=== PATIENT | male | born 1945 | race Caucasian/White ===

== ENCOUNTER 2018-04-17 20:46 | Inpatient (IN) | payer OTHER, MEDICARE ==
[~2018-04-17] VITALS: Ht 170.2 cm; Wt 64.6 kg
[~2018-04-17 20:46] MED LIST: ASPI81CH PO; ASPI81EC; ATEN25 PO; B-Complex With1 EACH PO; BUPROBAN PO; BUSP15 PO; CYAN100 PO; CYCL10 PO; ERGO400 PO; FOLI1 PO; GABA300 PO; HYDACE5 PO; IBUP600 PO; LISI5 PO; LORA.5 PO; METO50 PO; METPRE4DP PO; NICO2 PO; SIMV5 PO; THIA100 PO
[2018-04-17 21:32] LABS: BASOPHILS ABSOLUTE AUTO 0.09 K/mm3 (0.00-0.23); BASOPHILS PERCENT AUTO 1 % (0-2); EOSINOPHILS ABSOLUTE AUTO 0.08 K/mm3 (0.00-0.68); EOSINOPHILS PERCENT AUTO 1 % (0-6); Hematocrit 39.2 % (37.0-53.0); Hemoglobin 13.1 g/dL (13.5-17.5); IMMATURE GRAN PERCENT AUTO 1 % (0-1); LYMPHOCYTES ABSOLUTE AUTO 0.92 K/mm3 (0.84-5.20); LYMPHOCYTES PERCENT AUTO 5 % (21-46); MONOCYTES ABSOLUTE AUTO 2.17 K/mm3 (0.16-1.47); MONOCYTES PERCENT AUTO 12 % (4-13); Mean Corpuscular HGB 34.8 pg (26.0-34.0); Mean Corpuscular HGB Conc 33.4 g/dL (31.5-36.5); Mean Corpuscular Volume 104 fL (80-100); NEUTROPHILS ABSOLUTE AUTO 14.26 K/mm3 (1.96-9.15); NEUTROPHILS PERCENT AUTO 81 % (41-73); Platelet Count 296 K/mm3 (150-400); RDW Coefficient Variation 13.3 % (11.7-14.2); RDW Standard Deviation 51.2 fL (35.1-46.3); Red Blood Cell Count 3.76 M/mm3 (4.30-5.90); White Blood Cell Count 17.62 K/mm3 (4.00-11.30)
[2018-04-17 21:43] LABS: Alanine Aminotransfer (ALT/SGP 24 U/L (12-78); Albumin/Globulin Ratio 0.8 (0.8-1.8); Alk Phos 94 U/L (50-136); Anion Gap 5 mmol/L (6-16); Aspartate Aminotrans (AST/SGOT 24 U/L (12-37); Bilirubin, Total 0.8 mg/dL (0.1-1.0); Blood Urea Nitrogen 22 mg/dL (8-24); CO2, Blood 32 mmol/L (21-32); Calcium, Blood 8.5 mg/dL (8.5-10.1); Chloride, Blood 98 mmol/L (98-108); Creatinine, Blood 0.73 mg/dL (0.60-1.20); Globulin, Blood 3.7 g/dL (2.2-4.0); Glomerular Filtration Rate >60 (60-); Glucose, Blood 154 mg/dL (70-99); Potassium, Blood 3.9 mmol/L (3.5-5.5); Sodium, Blood 135 mmol/L (136-145); Total Protein, Blood 6.7 g/dL (6.4-8.2)
--- NOTE | 2018-04-18 03:48 | NUR ---
PT ADMITTED FROM ED FOR WEAKNESS WITH HX OF MULTIPLE FALLS. UPON ASSESSMENT, PT NOTED TO HAVE BLE EDEMA AND POOR CIRCULATION. 02 SATS RANGING FROM 90-92 ON 3 L PER NASAL CANNULA. WHEEZING NOTED UPON AUSCULATION. BREATHING TX X2. PT DENIES CHEST PAIN OR SOB. BED ALARM IN PLACE FOR SAFETY. CALL LIGHT IN REACH.
[2018-04-18 05:39] LABS: Hematocrit 41.1 % (37.0-53.0); Hemoglobin 14.2 g/dL (13.5-17.5); Mean Corpuscular HGB 35.9 pg (26.0-34.0); Mean Corpuscular HGB Conc 34.5 g/dL (31.5-36.5); Mean Corpuscular Volume 104 fL (80-100); Mean Platelet Volume 9.9 fL (9.1-12.4); Platelet Count 302 K/mm3 (150-400); RDW Coefficient Variation 13.2 % (11.7-14.2); RDW Standard Deviation 51.3 fL (35.1-46.3); Red Blood Cell Count 3.96 M/mm3 (4.30-5.90); White Blood Cell Count 18.14 K/mm3 (4.00-11.30)
[2018-04-18 06:15] LABS: Alanine Aminotransfer (ALT/SGP 26 U/L (12-78); Albumin, Blood 2.8 g/dL (3.4-5.0); Albumin/Globulin Ratio 0.7 (0.8-1.8); Alk Phos 97 U/L (50-136); Anion Gap 6 mmol/L (6-16); Aspartate Aminotrans (AST/SGOT 23 U/L (12-37); Bilirubin, Total 0.9 mg/dL (0.1-1.0); Blood Urea Nitrogen 24 mg/dL (8-24); Bun/Creatinine Ratio 39.1 (12.0-20.0); CO2, Blood 30 mmol/L (21-32); Calcium, Blood 8.7 mg/dL (8.5-10.1); Chloride, Blood 97 mmol/L (98-108); Creatinine, Blood 0.61 mg/dL (0.60-1.20); Glomerular Filtration Rate >60 (60-); Glucose, Blood 160 mg/dL (70-99); Potassium, Blood 4.1 mmol/L (3.5-5.5); Sodium, Blood 133 mmol/L (136-145); Total Protein, Blood 6.8 g/dL (6.4-8.2)
[2018-04-18 09:13] LABS: Adenovirus Not Detected (NOT DETECT); Bordetella pertussis Not Detected (NOT DETECT); Chlamydophila pneumoniae Not Detected (NOT DETECT); Coronavirus 229E Not Detected (NOT DETECT); Coronavirus HKU1 Not Detected (NOT DETECT); Coronavirus NL63 Not Detected (NOT DETECT); Coronavirus OC43 Not Detected (NOT DETECT); Human Metapneumovirus Not Detected (NOT DETECT); Human Rhinovirus/Enterovirus Not Detected (NOT DETECT); Influenza A/2009-H1 Not Detected (NOT DETECT); Influenza A/H1 Not Detected (NOT DETECT); Influenza A/H3 Not Detected (NOT DETECT); Influenza B Not Detected (NOT DETECT); Mycoplasma pneumoniae Not Detected (NOT DETECT); Parainfluenza Virus 1 Not Detected (NOT DETECT); Parainfluenza Virus 2 Not Detected (NOT DETECT); Parainfluenza Virus 3 Not Detected (NOT DETECT); Parainfluenza Virus 4 Not Detected (NOT DETECT); Respiratory Syncytial Virus Not Detected (NOT DETECT)
[2018-04-18 10:38] LABS: Influenza A Not Detected (NOT DETECT)
[2018-04-18 12:59] LABS: Source, Urine Clean Catch
[2018-04-18 13:09] LABS: Appearance, Urine Clear (Clear); Bilirubin, Urine Neg (Neg); Blood, Urine Neg (Neg); Color, Urine Yellow (P-Yellow); Glucose Qualitative, Urine Neg (Neg); Ketones, Urine Neg (Neg); Leukocyte Esterase, Urine Neg (Neg); Nitrite, Urine Neg (Neg); Protein, Urine 3+ (Neg); Specific Gravity, Urine 1.025 (1.003-1.022); Urobilinogen, Urine 2+ (Normal)
[2018-04-18 13:27] LABS: Red Blood Cells, Urine 0-2 /hpf (0-2); White Blood Cells, Urine 0-2 /hpf (0-5)
[2018-04-18 13:28] LABS: Bacteria Not Seen /hpf; Mucus Mod (0-Heavy); Squamous Epithelial Cells Rare /hpf (Few)
--- NOTE | 2018-04-18 16:24 | NUR ---
SHIFT SUMMARY PT HAS HAD NO ACUTE CHANGES THIS SHIFT, MEDICATED 1X FOR BACK PAIN, NO OTHER COMPLAINTS OF ANY KIND. PT HAS SLEPT T/O MOST OF SHIFT, WAKES EASLIY FOR PT CARE AND MEDS. PT APPEARS TO BE SLEEPING AT THIS TIME, WILL CONT TO MONITOR UNTIL REPORT GIVEN TO MADI RN.
[2018-04-18 19:01] LABS: PCO2 Arterial 50.4 mmHg (35-45); PO2 Arterial 58.2 mmHg (80-100); pH Blood Arterial 7.41 (7.35-7.45)
--- NOTE | 2018-04-19 03:59 | NUR ---
SHIFT SUMMARY: PT HAS DONE WELL THIS SHIFT. NO ACUTE CHANGES. ONE SBA TO BATHROOM WITH WALKER. PT REPORTS SOME DIZZINESS WHEN WALKING. BED ALARM ON FOR SAFETY. EATING AND DRINKING. ABX INFUSING. SATS MAINTAINED >90% ON 3 L PER NC. WILL BEGIN TO WEAN PATIENT OFF O2 TOLERATED. ENCOURAGE USE OF INCENTIVE SPIROMETER. NO CONCERNS AT THIS TIME. CALL LIGHT IN REACH.
[2018-04-19 08:40] LABS: BASOPHILS ABSOLUTE AUTO 0.01 K/mm3 (0.00-0.23); BASOPHILS PERCENT AUTO 0 % (0-2); EOSINOPHILS PERCENT AUTO 0 % (0-6); Hematocrit 41.6 % (37.0-53.0); Hemoglobin 13.9 g/dL (13.5-17.5); IMMATURE GRAN ABSOLUTE AUTO 0.16 K/mm3 (0.00-0.10); IMMATURE GRAN PERCENT AUTO 1 % (0-1); LYMPHOCYTES ABSOLUTE AUTO 0.56 K/mm3 (0.84-5.20); LYMPHOCYTES PERCENT AUTO 3 % (21-46); MONOCYTES ABSOLUTE AUTO 1.01 K/mm3 (0.16-1.47); MONOCYTES PERCENT AUTO 5 % (4-13); Mean Corpuscular HGB Conc 33.4 g/dL (31.5-36.5); Mean Corpuscular Volume 105 fL (80-100); Mean Platelet Volume 10.3 fL (9.1-12.4); NEUTROPHILS ABSOLUTE AUTO 20.43 K/mm3 (1.96-9.15); NEUTROPHILS PERCENT AUTO 92 % (41-73); Platelet Count 310 K/mm3 (150-400); RDW Coefficient Variation 13.2 % (11.7-14.2); RDW Standard Deviation 51.3 fL (35.1-46.3); Red Blood Cell Count 3.97 M/mm3 (4.30-5.90); White Blood Cell Count 22.17 K/mm3 (4.00-11.30)
[2018-04-19 08:49] LABS: Anion Gap 5 mmol/L (6-16); Blood Urea Nitrogen 29 mg/dL (8-24); Bun/Creatinine Ratio 46.8 (12.0-20.0); CO2, Blood 30 mmol/L (21-32); Chloride, Blood 102 mmol/L (98-108); Creatinine, Blood 0.62 mg/dL (0.60-1.20); Glomerular Filtration Rate >60 (60-); Glucose, Blood 194 mg/dL (70-99); Potassium, Blood 4.2 mmol/L (3.5-5.5); Sodium, Blood 137 mmol/L (136-145)
--- NOTE | 2018-04-19 16:03 | NUR ---
SHIFT SUMMARY PT A&OX4, VSS, 3.5L NC, UNABLE TO TITRATE DOWN TODAY; ENC TCDB AND I.S. USE, PT DEMONSTRATED T/O SHIFT. BLOOD PRESSURE BEST ON LUE, TENDS TO RUN HIGHER ON RUE. USES URINAL, VOIDING WELL. ABX INFUSING ORDERED. AMB SBA TO BRP, BM TODAY. WILL CTM & TX PER EMAR UNTIL REPORT GIVEN TO ONCOMING NOC RN.
--- NOTE | 2018-04-20 03:59 | NUR ---
SHIFT SUMMARY: PT REPORTS HAVING A ROUGH DAY. AGITATED AND ANXIOUS T/O SHIFT WHILE AWAKE. REPORTS BEING FRUSTURATED BECAUSE HE IS HAVING A HARD TIME FALLING ASLEEP AND IS NOT GETTING BETTER. BLE EDEMA HAS IMPROVED. DENIES SOB AND ANY PAIN. ON 3.5 L PER NC. PLAN IS FOR PT TO DISCHARGE TODAY. AT APPROX 2215 FILING CLERK REPORTS WITNESSING PT CUSSING AND YELLING ON CELL PHONE. PT THREW CELL PHONE ACROSS HALLWAY. SECURITY CALLED. DR NOTIFIED OF INCIDENT. ATIVAN X1 DOSE ORDERED. PT GIVEN ATIVAN, OFFERED EAR PLUGS AND WARM BLANKETS.
[2018-04-20 06:50] LABS: BASOPHILS ABSOLUTE AUTO 0.02 K/mm3 (0.00-0.23); BASOPHILS PERCENT AUTO 0 % (0-2); EOSINOPHILS PERCENT AUTO 0 % (0-6); Hematocrit 38.4 % (37.0-53.0); Hemoglobin 12.8 g/dL (13.5-17.5); IMMATURE GRAN ABSOLUTE AUTO 0.18 K/mm3 (0.00-0.10); IMMATURE GRAN PERCENT AUTO 1 % (0-1); LYMPHOCYTES ABSOLUTE AUTO 0.81 K/mm3 (0.84-5.20); LYMPHOCYTES PERCENT AUTO 5 % (21-46); MONOCYTES ABSOLUTE AUTO 1.49 K/mm3 (0.16-1.47); MONOCYTES PERCENT AUTO 9 % (4-13); Mean Corpuscular HGB 34.7 pg (26.0-34.0); Mean Corpuscular HGB Conc 33.3 g/dL (31.5-36.5); Mean Corpuscular Volume 104 fL (80-100); Mean Platelet Volume 10.2 fL (9.1-12.4); NEUTROPHILS ABSOLUTE AUTO 14.63 K/mm3 (1.96-9.15); NEUTROPHILS PERCENT AUTO 85 % (41-73); Platelet Count 311 K/mm3 (150-400); RDW Coefficient Variation 13.4 % (11.7-14.2); RDW Standard Deviation 51.5 fL (35.1-46.3); Red Blood Cell Count 3.69 M/mm3 (4.30-5.90); White Blood Cell Count 17.13 K/mm3 (4.00-11.30)
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
--- NOTE | 2018-04-21 07:30 | NUR ---
SUMMARY PT SLEPT TONIGHT. NO DISTRESS.
[2018-04-21] MEDS ORDERED: DULERA 200 MCG/13 GM INH (17:27)
[2018-04-21] MEDS ORDERED: NICO21TP TOP (17:28)
[2018-04-21] MEDS ORDERED: PRED20 PO (17:29)
[2018-04-21] MEDS ORDERED: LEVO750 PO (17:30)
[2018-04-21] MEDS ORDERED: IBUP400 PO (17:34)
--- NOTE | 2018-04-21 18:23 | NUR ---
PT DISCHARGED TO [facility]. PICKED UP BY FRIEND. PT VERBALIZED UNDERSTANDING OF DISCHARGE MEDICATIONS. ALL BELONGINGS SENT WITH PT.
== END 2018-04-21 17:59 | disposition home or self-care (01) | DRG 190 ==
LOC: ER 20:46 → SURS 23:01 → ER 23:17 → SURS 23:17 → ER 23:20 → SURS 23:27
PROVIDERS: Emergency Medicine; Internal Medicine; ADMIT Internal Medicine
DX: J44.1 Chronic obstructive pulmonary disease with (acute) exacerbation (principal); J96.01 Acute respiratory failure with hypoxia; J18.0 Bronchopneumonia, unspecified organism; J98.11 Atelectasis; E87.1 Hypo-osmolality and hyponatremia; G60.0 Hereditary motor and sensory neuropathy; F43.10 Post-traumatic stress disorder, unspecified; I25.10 Atherosclerotic heart disease of native coronary artery without angina pectoris; I10 Essential (primary) hypertension; F32.9 Major depressive disorder, single episode, unspecified; F17.210 Nicotine dependence, cigarettes, uncomplicated
CPT/HCPCS: 36415; 36600; 71046; 71260; 80048; 80053; 81001; 82803; 83735; 83880; 84484; 85025; 85027; 85379; 87070; 87205; 87486; 87581; 87633; 87798; 92610; 93005; 93010; 94640; 94667; 94760; 94761; 96374; 97110; 97116; 97162; 97165; 97530; 99285-25; G8996; G8997; G8998; J0360; J1650; J1956; J2930; J7030; J7050; Q9967

== ENCOUNTER 2018-08-22 11:39 | Inpatient (IN) | payer MEDICARE ==
[~2018-08-22] VITALS: Ht 167.6 cm; Wt 73.3 kg
[~2018-08-22 11:39] MED LIST changes: +DULERA 200 MCG/13 GM INH; +IBUP400 PO; +LEVO750 PO; +NICO21TP TOP; +PRED20 PO
[2018-08-22 12:00] LABS: Hematocrit 40.7 % (37.0-53.0); Hemoglobin 13.2 g/dL (13.5-17.5); Mean Corpuscular HGB 35.9 pg (26.0-34.0); Mean Corpuscular HGB Conc 32.4 g/dL (31.5-36.5); Mean Corpuscular Volume 111 fL (80-100); Mean Platelet Volume 10.3 fL (9.1-12.4); Platelet Count 188 K/mm3 (150-400); RDW Standard Deviation 62.1 fL (35.1-46.3); Red Blood Cell Count 3.68 M/mm3 (4.30-5.90); White Blood Cell Count 16.82 K/mm3 (4.00-11.30)
[2018-08-22 12:28] LABS: Anion Gap 8 mmol/L (6-16); Blood Urea Nitrogen 41 mg/dL (8-24); Bun/Creatinine Ratio 45.2 (12.0-20.0); CHOL/HDL RATIO 1.4; CO2, Blood 29 mmol/L (21-32); Calcium, Blood 8.6 mg/dL (8.5-10.1); Chloride, Blood 98 mmol/L (98-108); Cholesterol 145 mg/dL (50-200); Creatinine, Blood 0.91 mg/dL (0.60-1.20); Glomerular Filtration Rate >60 (60-); Glucose, Blood 189 mg/dL (70-99); HDL Cholesterol 104 mg/dL (>39); International Normalized Ratio 1.01; LDL/HDL RATIO 0.2; Low Density Lipoprotein Chol 24 mg/dL (0-110); Magnesium, Blood 1.9 mg/dL (1.6-2.4); Potassium, Blood 4.4 mmol/L (3.5-5.5); Prothrombin Time Results 10.7 Sec (9.7-11.5); Sodium, Blood 135 mmol/L (136-145); Triglycerides 85 mg/dL (30-160); Very Low Density Lipoprot Chol 17 mg/dL (6-32)
[2018-08-22 12:49] LABS: CPK Creatine Kinase 1667 U/L (39-308); Creatine Kinase MB Index 14.8 (0.0-4.0)
[2018-08-22] MEDS ORDERED: ALBU3IS INH (13:51)
[2018-08-22] MEDS ORDERED: ATEN50 PO (13:56)
[2018-08-22] MEDS ORDERED: Vitamin D2000 UNIT PO (13:57)
[2018-08-22] MEDS ORDERED: DOXY100 PO (13:59)
[2018-08-22] MEDS ORDERED: HYDHCL25 PO (14:00)
[2018-08-22] MEDS ORDERED: SERT25 PO (14:01)
[2018-08-22] MEDS ORDERED: SILDENAFIL CIT100 MG PO (14:02)
[2018-08-22] MEDS ORDERED: TAMS.4ER PO (14:03)
[2018-08-22] MEDS ORDERED: VARE1 PO (14:05)
--- NOTE | 2018-08-22 14:46 | NUR ---
ADMIT PT ARRIVED TO ICU 15 AT [address] IN R FEMORAL. SITE IS C/D/I, SOFT, NO HEMATOMA. PT AT FIRST COMPLAINED OF NO PAIN, BUT THEN STARTED COMPLAINING OF NECK PAIN AND DEMANDING A LIDOCAINE PATCH. EXPLAINED TO HIM THAT THIS RN WILL CALL THE DOCTOR, BUT HE IS IN THE MIDDLE OF A PROCEDURE SO IT MIGHT TAKE AWHILE TO HEAR FROM HIM. PT STARTED YELLING AT THIS RN TO GET OUT OF HIS ROOM, BEING VERY UNCOOPERATIVE. DURING THIS PT IS LIFTING HIS HEAD OFF THE BED DESPITE SEVERAL REMINDERS AND ONGOING EDUCATION TO LAY FLAT. PT IS MORE COOEPRATIVE NOW THAT ORDER FOR LIDOCAINE PATCH WAS RECEIVED AND PATCH WAS APPLIED BUT HE IS STILL NONCOMPLIANT WITH LYING FLAT, LIFTING HIS HEAD OFTEN. DESPITE THIS, GROIN SITE REMAINS C/D/I, SOFT, NO HEMATOMA. PT'S BP WAS ALSO LOW WHEN HE GOT HERE WITH SBP IN THE 70S AND 80S. 1L NS BOLUSED PER DR. HOLDER AND MAINTENANCE IV FLUIDS STATED. SBP NOW IN THE 90S. CONTINUE TO MONITOR.
--- NOTE | 2018-08-22 17:43 | NUR ---
SHIFT SUMMARY: PT HAD ANGIO TODAY AND HAS A R FEMORAL GROIN SITE. SHEATH HAS REMAINED IN PLACE BUT NOW RECEIVED ORDER FROM DR. GUZMAN TO REMOVE IT BECAUSE IT IS UNKNOWN WHEN PT WILL GO TO [facility] FOR FURTHER TREATMENT. PT REMAINS ALERT AND ORIENTED. HE HAS BEEN MUCH MORE POLITE SINCE HE GOT HIS LIDOCAINE PATCH. STILL FORGETS NOT TO LIFT HIS HEAD AND ONCE GOT CAUGHT TRYING TO GET TO THE EDGE OF THE BED. BED ALARM ON NOW. LUGNS HAVE SOME EXP WHEEZES ON THE R SIDE. ON HIS HOME O2 OF 2L/NC. WHEN HE WAS SLEEPING SPO2 DROPED TO 86% SO O2 INCREASED TO 3L AND SPO2 CAME UP ABOVE 90%. SB, SBP IN THE 90S. GOOD PULSES IN BOTH FEET. GROIN SITE SOFT, NO HEMATOMA. CONTINUING TO MONITOR.
--- NOTE | 2018-08-22 18:57 | NUR ---
PT'S GROIN SHEATH REMOVED WITHOUT INCIDENT. PRESSURE HELD FOR 20 MINUTES, BUT SITE WAS STILL OOZING SO PRESSURE HELD FOR ANOTHER 10 MINUTES AND SITE HAS BEEN C/D/I, SOFT WITH NO HEMATOMA SINCE. WHILE HANGING PT'S MEDS HE HAD SUDDEN ONSET OF NAUSEA, THREW UP ABOUT 50ML OF DARK EMESIS. ZOFRAN GIVEN AND NAUSEA PASSED. GROIN SITE REMAINED STABLE. IMMEDIATELY AFTER PT WAS REQUESTING YOGURT TO EAT. INSTRUCTED PT ON STARTING WITH CL LIQUIDS FIRST. PT ALSO REQUESTING PAIN PILL. DR. HOLDER GAVE ONE TIME ORDER FOR OXYCODONE FOR PAIN DURING PT TRANSPORT IF PT'S BP IS STABLE.
[2018-08-22 19:18] LABS: Adenovirus Not Detected (NOT DETECT); Bordetella pertussis Not Detected (NOT DETECT); Chlamydophila pneumoniae Not Detected (NOT DETECT); Coronavirus 229E Not Detected (NOT DETECT); Coronavirus HKU1 Not Detected (NOT DETECT); Coronavirus NL63 Not Detected (NOT DETECT); Coronavirus OC43 Not Detected (NOT DETECT); Human Metapneumovirus Not Detected (NOT DETECT); Human Rhinovirus/Enterovirus Not Detected (NOT DETECT); Influenza A Not Detected (NOT DETECT); Influenza A/2009-H1 Not Detected (NOT DETECT); Influenza A/H1 Not Detected (NOT DETECT); Influenza A/H3 Not Detected (NOT DETECT); Influenza B Not Detected (NOT DETECT); Mycoplasma pneumoniae Not Detected (NOT DETECT); Parainfluenza Virus 1 Not Detected (NOT DETECT); Parainfluenza Virus 2 Not Detected (NOT DETECT); Parainfluenza Virus 3 Not Detected (NOT DETECT); Parainfluenza Virus 4 Not Detected (NOT DETECT); Respiratory Syncytial Virus Not Detected (NOT DETECT)
--- NOTE | 2018-08-22 19:30 | NUR ---
PT REQUESTING PAIN PILL FOR CHRONIC BACK AND NECK PAIN. OXYCODONE GIVEN. GETTING COBRA TRANSFER READY. R GROIN SITE IS STABLE. HAS GAUZE OVER SITE WITH CLEAR DRESSING SECURING IT. THERE IS A QUARTER SIZE BLOODY SPOT ON GAUZE THAT IS OUTLINED WITH SHARPIE AND IS WITHIN THE LINES. CONTINUOUSLY EDUCATING PT TO LAY FLAT AND KEEP LEG STRAIGHT.
--- NOTE | 2018-08-22 20:54 | NUR ---
2039 PT TAKEN BY AIR CREW AND AMB CREW TO AIRPORT FOR FIXED WING TRANSPORT TO [facility]. PT A/O X4. R GROIN SITE STABLE AND FLIGHT RN ASSESSED WELL. REPORT WAS CALLED TO HALLE TUCKER AT [facility].
== END 2018-08-22 20:40 | disposition short-term general hospital (02) | DRG 281 ==
LOC: ER 11:39 → ICUW 11:52
PROVIDERS: Emergency Medicine; Family Medicine; ADMIT Internal Medicine Interventional Cardiology
PROC: B2111ZZ Fluoroscopy of Multiple Coronary Arteries using Low Osmolar Contrast (ICD-10-PCS; principal; 2018-08-22)
DX: I21.3 ST elevation (STEMI) myocardial infarction of unspecified site (principal); J44.1 Chronic obstructive pulmonary disease with (acute) exacerbation; E87.1 Hypo-osmolality and hyponatremia; T82.855A Stenosis of coronary artery stent, initial encounter; I25.10 Atherosclerotic heart disease of native coronary artery without angina pectoris; E78.5 Hyperlipidemia, unspecified; Z87.891 Personal history of nicotine dependence; Z79.82 Long term (current) use of aspirin; G60.0 Hereditary motor and sensory neuropathy; G62.9 Polyneuropathy, unspecified; I10 Essential (primary) hypertension; E53.8 Deficiency of other specified B group vitamins; F41.8 Other specified anxiety disorders; I25.2 Old myocardial infarction; Z87.820 Personal history of traumatic brain injury; F10.10 Alcohol abuse, uncomplicated
CPT/HCPCS: 36415; 71045; 80048; 80061; 82550; 82553; 83735; 84100; 84145; 84484; 85027; 85610; 85730; 86850; 86900; 86901; 87486; 87581; 87633; 87798; 92941; 93005; 93010; 93454; 99152; 99153; C1725; C1769; C1887; C1894; J0456; J1644; J2250; J2405; J2930; J3010; J3411; J3475; J7030; J7042; J7050; Q9967

== ENCOUNTER 2018-08-27 23:23 | Inpatient (IN) | payer OTHER, MEDICARE ==
[~2018-08-27] VITALS: Ht 170.2 cm; Wt 76.1 kg
[~2018-08-27 23:23] MED LIST changes: +ALBU3IS INH; +ATEN50 PO; +DOXY100 PO; +HYDHCL25 PO; +SERT25 PO; +SILDENAFIL CIT100 MG PO; +TAMS.4ER PO; +VARE1 PO; +Vitamin D2000 UNIT PO
[2018-08-27 23:43] LABS: BASOPHILS ABSOLUTE AUTO 0.02 K/mm3 (0.00-0.23); BASOPHILS PERCENT AUTO 0 % (0-2); EOSINOPHILS ABSOLUTE AUTO 0.13 K/mm3 (0.00-0.68); EOSINOPHILS PERCENT AUTO 1 % (0-6); Hematocrit 41.5 % (37.0-53.0); IMMATURE GRAN ABSOLUTE AUTO 0.17 K/mm3 (0.00-0.10); IMMATURE GRAN PERCENT AUTO 1 % (0-1); LYMPHOCYTES ABSOLUTE AUTO 1.06 K/mm3 (0.84-5.20); LYMPHOCYTES PERCENT AUTO 7 % (21-46); MONOCYTES ABSOLUTE AUTO 2.36 K/mm3 (0.16-1.47); MONOCYTES PERCENT AUTO 14 % (4-13); Mean Corpuscular HGB 35.6 pg (26.0-34.0); Mean Corpuscular HGB Conc 33.7 g/dL (31.5-36.5); Mean Corpuscular Volume 106 fL (80-100); Mean Platelet Volume 9.6 fL (9.1-12.4); NEUTROPHILS PERCENT AUTO 77 % (41-73); Platelet Count 287 K/mm3 (150-400); RDW Coefficient Variation 14.6 % (11.7-14.2); RDW Standard Deviation 57.1 fL (35.1-46.3); Red Blood Cell Count 3.93 M/mm3 (4.30-5.90); White Blood Cell Count 16.34 K/mm3 (4.00-11.30)
[2018-08-27 23:56] LABS: International Normalized Ratio 1.07; Prothrombin Time Results 11.3 Sec (9.7-11.5)
[2018-08-28 00:01] LABS: Alanine Aminotransfer (ALT/SGP 73 U/L (12-78); Albumin, Blood 2.9 g/dL (3.4-5.0); Albumin/Globulin Ratio 0.9 (0.8-1.8); Alk Phos 83 U/L (50-136); Anion Gap 7 mmol/L (6-16); Aspartate Aminotrans (AST/SGOT 69 U/L (12-37); Bilirubin, Total 0.3 mg/dL (0.1-1.0); Blood Urea Nitrogen 29 mg/dL (8-24); Bun/Creatinine Ratio 46.7 (12.0-20.0); CO2, Blood 30 mmol/L (21-32); Calcium, Blood 8.2 mg/dL (8.5-10.1); Chloride, Blood 98 mmol/L (98-108); Creatinine, Blood 0.62 mg/dL (0.60-1.20); Globulin, Blood 3.2 g/dL (2.2-4.0); Glomerular Filtration Rate >60 (60-); Glucose, Blood 122 mg/dL (70-99); Potassium, Blood 4.3 mmol/L (3.5-5.5); Sodium, Blood 135 mmol/L (136-145); Total Protein, Blood 6.1 g/dL (6.4-8.2)
[2018-08-28 00:09] LABS: PCO2 Arterial 54.4 mmHg (35-45); pH Blood Arterial 7.39 (7.35-7.45)
[2018-08-28 00:10] LABS: PO2 Arterial 48 mmHg (80-100)
--- NOTE | 2018-08-28 06:24 | NUR ---
ASSUMED PT CARE/END OF SHIFT SUMMARY PT ARRIVED ON UNIT VIA STRETCHER SECONDARY TO COPD EXACERBATION. PT ON 10L VIA OXYMIZER WITH OXYGEN SATURATIONS 96%. PT APPEARS ALERT AND ORIENTED X4, BUT PT IS NOTED TO BE A POOR HISTORIAN AND FORGETFUL. LUNG SOUNDS DIMINISHED T/O WITH SOB NOTED UPON EXERTION. PT ABLE TO TRANSFER FROM STRETCHER TO BED WITH STANDBY ASSIST. HEPARIN GTT INFUSING AT 13UNITS/KG/HR. NS TKO WITH ABO. SKIN IS COOL TO THE TOUCH WITH POOR CAPILLARY REFILL. +2 PITTING EDEMA TO LEFT FOOT/ANKLE; NO EDEMA TO RIGHT LOWER EXTREMITY. PT DENIES ANY CHEST PAIN AT THIS TIME; HOWEVER, TROPONIN LEVEL OF 28. CARDIOLOGY HAS BEEN CONSULTED. PT HAS CALL LIGHT IN REACH AND IS ABLE TO MAKE NEEDS KNOWN. PLACED ON BIPAP D/T PT WANTING TO GO TO SLEEP; SETTINGS 12/6; FIO2 40%.
--- NOTE | 2018-08-28 07:17 | NUR ---
[facility] L[facility] CALL TO [facility] FOR UPDATED MEDICATION LIST. FAX NUMBER PROVIDED, AWAITING ARRIVAL OF LIST.
--- NOTE | 2018-08-28 07:39 | NUR ---
MEDICAL RECORD REQUEST MEDICAL RECORD REQUEST FAXED TO [facility]. CALL TO THEIR MEDICAL RECORDS DEPARTMENT SO THEY ARE AWARE OF THE INCOMING REQUEST. AWAITING RECORDS ARRIVAL.
[2018-08-28 08:04] LABS: Magnesium, Blood 1.8 mg/dL (1.6-2.4); Phosphorus, Blood 3.9 mg/dL (2.5-4.9)
[2018-08-28 08:13] LABS: CHOL/HDL RATIO 1.9; Cholesterol 143 mg/dL (50-200); HDL Cholesterol 76 mg/dL (>39); LDL/HDL RATIO 0.7; Low Density Lipoprotein Chol 54 mg/dL (0-110); Triglycerides 66 mg/dL (30-160); Very Low Density Lipoprot Chol 13 mg/dL (6-32)
--- NOTE | 2018-08-28 09:28 | NUR ---
0745 The pt was heard asking someone on the phone to "come and pick me up". I asked him if he wanted to leave the hospital, and he said that he "hates going AMA" but that he has "a fever". Then he clarified and stated that he has cabin fever, and just has to leave. His overall affect this morning was angry, irritable, and at times yelling at staff. market analystGARRETT Olivares was notified of the pt's stated intention of leaving AMA. 0840 The pt's friend arrived, and the pt became irate, yelling, "I've got to get out of here!" His reason for leaving AMA was that he has cabin fever, and just can't stand staying in the hospital due to "my severe PTSD". Dr. Swanson here in ICU at the time was notified, zinc furnace charger TErry also present in pt's room, and the pt was notified of the risks and benefits of leaving vs. staying in hospital. IVs were dc'd, heart monitor removed, and the pt departed with his friend. I asked the friend if he had brought the pt's home oxygen with him, and he said no. The pt states that he is going to get it back.
[2018-08-29] MEDS ORDERED: DOXY100 PO (20:41)
== END 2018-08-28 08:50 | disposition left against medical advice (07) | DRG 189 ==
LOC: ER 23:23 → ICUW 08-28 01:57
PROVIDERS: Emergency Medicine; ADMIT Internal Medicine
PROC: 5A09357 Assistance with Respiratory Ventilation, Less than 24 Consecutive Hours, Continuous Positive Airway Pressure (ICD-10-PCS; principal; 2018-08-28)
DX: J96.01 Acute respiratory failure with hypoxia (principal); I21.3 ST elevation (STEMI) myocardial infarction of unspecified site; J44.1 Chronic obstructive pulmonary disease with (acute) exacerbation; I48.92 Unspecified atrial flutter; I25.10 Atherosclerotic heart disease of native coronary artery without angina pectoris; I10 Essential (primary) hypertension; Z87.820 Personal history of traumatic brain injury; E78.5 Hyperlipidemia, unspecified; F17.210 Nicotine dependence, cigarettes, uncomplicated; G60.0 Hereditary motor and sensory neuropathy; G62.9 Polyneuropathy, unspecified; F10.20 Alcohol dependence, uncomplicated; Z99.81 Dependence on supplemental oxygen; Z79.82 Long term (current) use of aspirin; G89.29 Other chronic pain
CPT/HCPCS: 36415; 36600; 71045; 80053; 80061; 82803; 83735; 84100; 84443; 84484; 85025; 85610; 85730; 93005; 93010; 94640; 94645; 94660; 96361; 96374; 96375; 96376; 99285-25; J1644; J1956; J2270; J2920; J2930; J7030; J7050

== ENCOUNTER 2018-08-29 16:13 | Inpatient (IN) | payer OTHER, MEDICARE ==
[~2018-08-29] VITALS: Ht 167.6 cm; Wt 74.0 kg
[2018-08-29 16:38] LABS: BASOPHILS ABSOLUTE AUTO 0.03 K/mm3 (0.00-0.23); BASOPHILS PERCENT AUTO 0 % (0-2); EOSINOPHILS ABSOLUTE AUTO 0.09 K/mm3 (0.00-0.68); EOSINOPHILS PERCENT AUTO 1 % (0-6); Hematocrit 41.4 % (37.0-53.0); Hemoglobin 13.9 g/dL (13.5-17.5); IMMATURE GRAN ABSOLUTE AUTO 0.21 K/mm3 (0.00-0.10); IMMATURE GRAN PERCENT AUTO 1 % (0-1); LYMPHOCYTES ABSOLUTE AUTO 0.85 K/mm3 (0.84-5.20); LYMPHOCYTES PERCENT AUTO 5 % (21-46); MONOCYTES ABSOLUTE AUTO 2.08 K/mm3 (0.16-1.47); MONOCYTES PERCENT AUTO 11 % (4-13); Mean Corpuscular HGB 35.5 pg (26.0-34.0); Mean Corpuscular HGB Conc 33.6 g/dL (31.5-36.5); Mean Corpuscular Volume 106 fL (80-100); Mean Platelet Volume 9.8 fL (9.1-12.4); NEUTROPHILS ABSOLUTE AUTO 15.58 K/mm3 (1.96-9.15); NEUTROPHILS PERCENT AUTO 83 % (41-73); Platelet Count 340 K/mm3 (150-400); RDW Coefficient Variation 14.6 % (11.7-14.2); RDW Standard Deviation 57.9 fL (35.1-46.3); Red Blood Cell Count 3.91 M/mm3 (4.30-5.90); White Blood Cell Count 18.84 K/mm3 (4.00-11.30)
[2018-08-29 17:06] LABS: Alanine Aminotransfer (ALT/SGP 58 U/L (12-78); Albumin, Blood 2.9 g/dL (3.4-5.0); Albumin/Globulin Ratio 0.9 (0.8-1.8); Alk Phos 77 U/L (50-136); Anion Gap 5 mmol/L (6-16); Aspartate Aminotrans (AST/SGOT 43 U/L (12-37); Bilirubin, Total 0.6 mg/dL (0.1-1.0); Blood Urea Nitrogen 20 mg/dL (8-24); Bun/Creatinine Ratio 35.6 (12.0-20.0); CO2, Blood 32 mmol/L (21-32); Chloride, Blood 99 mmol/L (98-108); Creatinine, Blood 0.56 mg/dL (0.60-1.20); Globulin, Blood 3.3 g/dL (2.2-4.0); Glomerular Filtration Rate >60 (60-); Glucose, Blood 130 mg/dL (70-99); Potassium, Blood 4.2 mmol/L (3.5-5.5); Sodium, Blood 136 mmol/L (136-145); Total Protein, Blood 6.2 g/dL (6.4-8.2)
[2018-08-29] MEDS ORDERED: DOXY100 PO (20:41)
[2018-08-30 01:39] LABS: Adenovirus F 40/41 Not Detected (NOT DETECT); Astrovirus Not Detected (NOT DETECT); Campylobacter Sp Not Detected (NOT DETECT); Cryptosporidium Not Detected (NOT DETECT); Cyclospora Cayetanensis Not Detected (NOT DETECT); E. Coli O157 Not Detected (NOT DETECT); Entamoeba Histolytica Not Detected (NOT DETECT); Enteroaggregative E. coli-EAEC Not Detected (NOT DETECT); Enteropathogenic E. coli-EPEC Not Detected (NOT DETECT); Enterotoxigenic E. coli-ETEC Not Detected (NOT DETECT); Giardia Lamblia Not Detected (NOT DETECT); Norovirus GI/GII Not Detected (NOT DETECT); Plesiomonas Shigelloides Not Detected (NOT DETECT); Rotavirus A Not Detected (NOT DETECT); Salmonella Sp Not Detected (NOT DETECT); Sapovirus Not Detected (NOT DETECT); Shiga Toxin-prod E. coli-STEC Not Detected (NOT DETECT); Shigella/Enteroin E. coli-EIEC Not Detected (NOT DETECT); Vibrio Cholerae Not Detected (NOT DETECT); Vibrio Sp Not Detected (NOT DETECT); Yersinia Enterocolitica Not Detected (NOT DETECT)
--- NOTE | 2018-08-30 03:29 | NUR ---
SHIFT SUMMARY THE PT ADMITTED FOR COPD EXACERBATION. C-DIFF R/O AND CONTACT ISOLATION DISCONTINUED. FULL CODE. CARDIAC DIET. TELE-NSR AT A RATE OF 74. LOVENOX FOR DVT PROPHYLAXIS. CIWA SCORES BETWEEN 3 AND 5. 4L O2 VIA NC. PT HAS HOME O2 CONCENTRATOR THAT PT USED INTERMITTENTLY WHEN NEEDED BUT VOICED CONCEARNS REGARDING NEED FOR PORTABLY O2 AFTER ATTENDING A [facility] YESTERDAY AND BECOMING EXTREMELY SOB AND CALLING EMS UPON ARRIVAL HOME FROM EVENT. 1 ASSIST TO BSC. TAKES MEDICATION WHOL. 20G IV TO L AC. THE PT PRESENTED TO THE ED VIA EMS WITH C/O SOB AND DIARRHEA WITH MULTIPLE INCONTINENT EPISODES. PER REPORT THE PT WAS ADMITTED 7 DAYS PRIOR TO THIS ADMISSION FOR STEMI. CARDIAC CATH SHOWED CALCIFICATION OF CORONARY ARTERIEES WITH IN-STENT RESTENOSIS AND THE PT WAS TRANSFERRED TO [facility] WITH A TROPONIN OF 70 PER REPORT. THE PT LEFT [facility] HEARD AMA. THE PT ALSO NOTED TO HAVE BEEN ADMITTED TO [facility] WHERE HE LEFT AMA. THIS NURSE EDUCATED PT REGARDING THE IMPORTANCE OF HOSPITAL STAY UNTIL PT IS HEALTHY ENOUGH FOR RELEASE. THE PT STATED THAT HE WANTED TO BE IN THE COMFORT OF HIS OWN HOME. THIS NURSE ADVISED PT THAT PT WOULD RESULT IN FREQUENT READMISSION AND LONGER HOSPITAL STAYS AWAY FROM THE COMFORT OF OWN HOME IF CONTINUES TO LEAVE AMA. THIS NURSE ADVISED PT THAT CONTINUING TO NO FOLLOW MEDICAL ADVISE COULD RESULT IN . PT VERBALIZED UNDERSTANDING OF EDUCATION PROVIDED AND AGREED TO STAY UNTIL HEALTHY ENOUGH TO DC HOME SUCCESSFULLY. THIS NURSE NOTED DISCHARGE CONCEARNS SECONDARY TO REPORT THAT PT CURRENTLY LIVES IN [place] WITH A ROOMATE WHO APPARENTLY HAS NO FINANCIAL CONTRIBUTION TO HOUSEHOLD, PT PAYS FOR ALL EXPENSES IN EXCHANGE FOR TRANSPORTATION PT IS UNABLE TO DRIVE. HOWEVER, PT HAD TO CONTACT EMS TO GET TO THE ED TODAY, INDICATING POSSIBLE LACK OF TRANSPORTATION. ALSO RECIEVED IN REPORT FROM ED NURSE THAT PT WAS UNABLE TO EXPLAIN HOW PT GOT HOME AFTER LEAVING AMA FROM [facility], AND THAT PT WAS VERY POOR HISTORIAN. HOWEVER, PT PRESENTED TO THIS NURSE A&O X4. SS CONSULT IS ORDERED. THE PT HAS APPEARED TO SLEEP COMFORTABLY MOST OF THE NIGHT SINCE ADMISSION UNTIL RECENTLY. THE PT IS CURRENTLY AWAKE SITTING UP IN BED WATCHING TV. NO APPARENT SIGNS OF ACUTE DISTRESS. FREQUENT VISUAL CHECKS PT DOES NOT USE CALL LIGHT AND DOES NOT WAIT FOR ASSISTANCE. PT ABLE TO VERBALIZED UNDERSTANDING OF USE OF CALL LIGHT BUT DOES NOT USE. BED ALARM FOR SAFETY.
[2018-08-30 05:04] LABS: BASOPHILS ABSOLUTE AUTO 0.02 K/mm3 (0.00-0.23); BASOPHILS PERCENT AUTO 0 % (0-2); EOSINOPHILS PERCENT AUTO 0 % (0-6); Hematocrit 42.6 % (37.0-53.0); IMMATURE GRAN PERCENT AUTO 1 % (0-1); LYMPHOCYTES ABSOLUTE AUTO 0.28 K/mm3 (0.84-5.20); LYMPHOCYTES PERCENT AUTO 2 % (21-46); MONOCYTES PERCENT AUTO 2 % (4-13); Mean Corpuscular HGB Conc 32.9 g/dL (31.5-36.5); Mean Corpuscular Volume 107 fL (80-100); Mean Platelet Volume 9.9 fL (9.1-12.4); NEUTROPHILS PERCENT AUTO 95 % (41-73); Platelet Count 359 K/mm3 (150-400); RDW Coefficient Variation 14.7 % (11.7-14.2); RDW Standard Deviation 58.5 fL (35.1-46.3)
[2018-08-30 05:34] LABS: Alanine Aminotransfer (ALT/SGP 50 U/L (12-78); Albumin, Blood 2.6 g/dL (3.4-5.0); Albumin/Globulin Ratio 0.9 (0.8-1.8); Alk Phos 79 U/L (50-136); Anion Gap 4 mmol/L (6-16); Aspartate Aminotrans (AST/SGOT 32 U/L (12-37); Blood Urea Nitrogen 20 mg/dL (8-24); Bun/Creatinine Ratio 33.4 (12.0-20.0); CO2, Blood 36 mmol/L (21-32); Calcium, Blood 8.4 mg/dL (8.5-10.1); Chloride, Blood 101 mmol/L (98-108); Globulin, Blood 2.9 g/dL (2.2-4.0); Glomerular Filtration Rate >60 (60-); Glucose, Blood 141 mg/dL (70-99); Potassium, Blood 4.9 mmol/L (3.5-5.5); Sodium, Blood 141 mmol/L (136-145); Total Protein, Blood 5.5 g/dL (6.4-8.2)
--- NOTE | 2018-08-30 19:11 | NUR ---
SHIFT SUMMARY: NO ACUTE CHANGES TO REPORT THIS SHIFT. PT A&O; LABILE; COOPERATIVE WITH CARE. NO C/O PAIN OR NAUSEA THIS SHIFT. PT UP WITH SBA TO BATHROOM. AWAITING HAT BAND ATTACHER CONSULT. REPORT GIVEN TO ONCOMING RN.
--- NOTE | 2018-08-31 04:26 | NUR ---
SHIFT SUMMARY NO APPARENT SIGNS OF ACUTE DISTRESS NOTED SO FAR THIS SHIFT. THE PT APPEARS TO BE FEELING WELL. THE PT DID NOT TALK ABOUT LEAVING AMA SO FAR THIS SHIFT. THE PTS GAIT APPEARS TO HAVE IMPROVED BALANCE. THE PT HAS NOT APPEARED TO SLEEP WELL THIS NIGHT. THE PT IS AWAKE AT THIS TIME SITTING UP IN BED. NO APPARENT SIGNS OF ACUTE DISTRESS. ABLE TO MAKE NEEDS KNOWN AND CALL LIGHT IN REACH.
--- NOTE | 2018-08-31 18:39 | NUR ---
SHIFT SUMMARY MERRY ON 3-4 LITERS AT REST, ON 6 LITERS WITH AMBULATION. TELE DC'D. DENIED PAIN. SBA TO BR FOR VOIDING. BEEN HAVING ONE BM PER DAY PER PT. TOOK MEDS PRESCRIBED. CALL LIGHT IN REACH. WCTM
[2018-09-01 04:56] LABS: BASOPHILS ABSOLUTE AUTO 0.02 K/mm3 (0.00-0.23); BASOPHILS PERCENT AUTO 0 % (0-2); EOSINOPHILS ABSOLUTE AUTO 0.04 K/mm3 (0.00-0.68); EOSINOPHILS PERCENT AUTO 0 % (0-6); Hematocrit 39.5 % (37.0-53.0); Hemoglobin 12.9 g/dL (13.5-17.5); IMMATURE GRAN ABSOLUTE AUTO 0.19 K/mm3 (0.00-0.10); IMMATURE GRAN PERCENT AUTO 1 % (0-1); LYMPHOCYTES ABSOLUTE AUTO 1.11 K/mm3 (0.84-5.20); LYMPHOCYTES PERCENT AUTO 6 % (21-46); MONOCYTES ABSOLUTE AUTO 1.52 K/mm3 (0.16-1.47); MONOCYTES PERCENT AUTO 8 % (4-13); Mean Corpuscular HGB 35.2 pg (26.0-34.0); Mean Corpuscular HGB Conc 32.7 g/dL (31.5-36.5); Mean Corpuscular Volume 108 fL (80-100); Mean Platelet Volume 9.5 fL (9.1-12.4); NEUTROPHILS ABSOLUTE AUTO 16.55 K/mm3 (1.96-9.15); NEUTROPHILS PERCENT AUTO 85 % (41-73); Platelet Count 359 K/mm3 (150-400); RDW Coefficient Variation 14.6 % (11.7-14.2); RDW Standard Deviation 57.9 fL (35.1-46.3); Red Blood Cell Count 3.66 M/mm3 (4.30-5.90); White Blood Cell Count 19.43 K/mm3 (4.00-11.30)
[2018-09-01 05:22] LABS: Anion Gap 3 mmol/L (6-16); Blood Urea Nitrogen 25 mg/dL (8-24); Bun/Creatinine Ratio 37.1 (12.0-20.0); CO2, Blood 37 mmol/L (21-32); Calcium, Blood 8.4 mg/dL (8.5-10.1); Chloride, Blood 100 mmol/L (98-108); Creatinine, Blood 0.67 mg/dL (0.60-1.20); Glomerular Filtration Rate >60 (60-); Glucose, Blood 97 mg/dL (70-99); Potassium, Blood 4.6 mmol/L (3.5-5.5); Sodium, Blood 140 mmol/L (136-145)
--- NOTE | 2018-09-01 14:19 | NUR ---
PT DISCHARGED AT 14OO
== END 2018-09-01 14:08 | disposition home or self-care (01) | DRG 190 ==
LOC: ER 16:13 → MEDS 18:31 → ENPENDDIS 09-01 11:29 → MEDS 09-01 14:08
PROVIDERS: Emergency Medicine; Internal Medicine; ADMIT Internal Medicine
PROC: 5A09357 Assistance with Respiratory Ventilation, Less than 24 Consecutive Hours, Continuous Positive Airway Pressure (ICD-10-PCS; principal; 2018-08-30)
DX: J44.1 Chronic obstructive pulmonary disease with (acute) exacerbation (principal); I21.3 ST elevation (STEMI) myocardial infarction of unspecified site; J96.11 Chronic respiratory failure with hypoxia; I25.10 Atherosclerotic heart disease of native coronary artery without angina pectoris; F43.10 Post-traumatic stress disorder, unspecified; Z99.81 Dependence on supplemental oxygen; I10 Essential (primary) hypertension; G62.9 Polyneuropathy, unspecified; Z95.5 Presence of coronary angioplasty implant and graft; Z79.82 Long term (current) use of aspirin; F17.210 Nicotine dependence, cigarettes, uncomplicated; F41.9 Anxiety disorder, unspecified; F10.20 Alcohol dependence, uncomplicated; R19.7 Diarrhea, unspecified
CPT/HCPCS: 36415; 71046; 80048; 80053; 85025; 87507; 93005; 93010; 94640; 94644; 94760; 99285-25; G0480; J1650; J2930; J7512

== ENCOUNTER 2018-09-04 20:10 | Inpatient (IN) | payer MEDICARE ==
[~2018-09-04] VITALS: Ht 167.6 cm; Wt 72.5 kg
[2018-09-04] MEDS ORDERED: ALBU90OI61 INH (21:50)
[2018-09-04] MEDS ORDERED: LO-DOSE ASPIRIN81 MG PO (21:50)
[2018-09-04] MEDS ORDERED: BUPR150T2 PO (21:51)
[2018-09-04 22:23] LABS: Creatine Kinase MB 5.3 ng/mL (0.0-3.6); Creatine Kinase MB Index 3.6 (0.0-4.0)
[2018-09-05 03:47] LABS: Adenovirus Not Detected (NOT DETECT); Bordetella pertussis Not Detected (NOT DETECT); Chlamydophila pneumoniae Not Detected (NOT DETECT); Coronavirus 229E Not Detected (NOT DETECT); Coronavirus HKU1 Not Detected (NOT DETECT); Coronavirus NL63 Not Detected (NOT DETECT); Coronavirus OC43 Not Detected (NOT DETECT); Human Metapneumovirus Not Detected (NOT DETECT); Human Rhinovirus/Enterovirus Not Detected (NOT DETECT); Influenza A Not Detected (NOT DETECT); Influenza A/2009-H1 Not Detected (NOT DETECT); Influenza A/H1 Not Detected (NOT DETECT); Influenza A/H3 Not Detected (NOT DETECT); Influenza B Not Detected (NOT DETECT); Mycoplasma pneumoniae Not Detected (NOT DETECT); Parainfluenza Virus 1 Not Detected (NOT DETECT); Parainfluenza Virus 2 Not Detected (NOT DETECT); Parainfluenza Virus 3 Not Detected (NOT DETECT); Parainfluenza Virus 4 Not Detected (NOT DETECT); Respiratory Syncytial Virus Not Detected (NOT DETECT)
--- NOTE | 2018-09-05 04:24 | NUR ---
SHIFT SUMMARY: PT IS ALERT AND ORIENTED. PT IS CALM AND COOPERATIVE WITH CARE. PT STATES THAT HE IS GOING TO GO HOME THIS MORNING, AGREES TO STRESS TEST. PT DID NOT USE HIS CALL LIGHT, STANDBY ASSIST, AMBULATED THE UNIT WITH A FWW. PT DENIES PAIN, NAUSEA, AND VOMITING. O2 @ 2 L VIA NC, BASELINE, SATS REMAIN > 90%. NO ACUTE CHANGES OR COMPLICATIONS OVERNIGHT. BED IN LOW POSITION, CALL LIGHT WITHIN REACH. WILL REPORT TO DAY NURSE.
[2018-09-05 05:35] LABS: Anion Gap 3 mmol/L (6-16); Blood Urea Nitrogen 22 mg/dL (8-24); Bun/Creatinine Ratio 35.2 (12.0-20.0); CO2, Blood 42 mmol/L (21-32); Calcium, Blood 8.6 mg/dL (8.5-10.1); Chloride, Blood 94 mmol/L (98-108); Creatinine, Blood 0.63 mg/dL (0.60-1.20); Glomerular Filtration Rate >60 (60-); Glucose, Blood 151 mg/dL (70-99); Sodium, Blood 139 mmol/L (136-145)
[2018-09-05 06:16] LABS: Source, Urine Clean Catch
[2018-09-05 06:19] LABS: Bilirubin, Urine Neg (Neg); Blood, Urine Neg (Neg); Glucose Qualitative, Urine 2+ (Neg); Ketones, Urine 1+ (Neg); Leukocyte Esterase, Urine 1+ (Neg); Nitrite, Urine Neg (Neg); Protein, Urine 3+ (Neg); Specific Gravity, Urine 1.015 (1.003-1.022); Urobilinogen, Urine 1+ (Normal)
[2018-09-05 06:24] LABS: Appearance, Urine Clear (Clear); Color, Urine Yellow (P-Yellow)
[2018-09-05 06:25] LABS: Amorphous Light (0-Heavy); Bacteria Rare /hpf; Mucus Light (0-Heavy); Red Blood Cells, Urine Not Seen /hpf (0-2); Squamous Epithelial Cells Not Seen /hpf (Few); White Blood Cells, Urine 0-2 /hpf (0-5)
[2018-09-05 06:29] LABS: U Amphetamine Screen Not Detected; U Barbituate Screen Not Detected; U Benzodiazapine Screen DETECTED; U Buprenorphine Screen Not Detected; U Cannabinoids Screen Not Detected; U Cocaine Screen Not Detected; U Methadone Screen Not Detected; U Methamphetamine Screen DETECTED; U Opiates Screen Not Detected; U Oxycodone Screen Not Detected; U Phencyclidine Screen Not Detected; U Propoxyphene Screen Not Detected
--- NOTE | 2018-09-05 10:06 | NUR ---
AMA: DR. MERRITT NOTIFIED PT LEFT AMA AT 1000.
--- NOTE | 2018-09-05 14:44 | NUR ---
DURING SHIFT CHANGE IT WAS NOTED THAT THE PT HAD PREVIOUSLY LEFT AMA. PT STATED THAT HE WOULD NOT BE LEAVING AMA AND WOULD WAIT UNTIL THE DR ROUNDED BEFORE LEAVING THIS AM. PT SEEMED ANXIOUS IN ROOM. PT WAS PROVIDED WITH COFFEE. AT AROUND 845 THE CONTRACT POST OFFICE CLERK REPORTED THE PT OUT OF THE ROOM AND ALL POSESSION MISSING. CHARGE NURSE GABRIEL Godoy NOTIFIED. GABRIEL STATED TO WAIT UNTIL 1000 AND CONSIDER THE PT AMA IF HE HADN'T RETURNED BY THIS TIME.
== END 2018-09-05 10:00 | disposition left against medical advice (07) | DRG 292 ==
LOC: ER 20:10 → MEDS 23:06
PROVIDERS: Nurse Practitioner Acute Care; ADMIT Internal Medicine
DX: I11.0 Hypertensive heart disease with heart failure (principal); J44.1 Chronic obstructive pulmonary disease with (acute) exacerbation; J96.11 Chronic respiratory failure with hypoxia; I50.9 Heart failure, unspecified; I25.10 Atherosclerotic heart disease of native coronary artery without angina pectoris; F10.20 Alcohol dependence, uncomplicated; F41.1 Generalized anxiety disorder; Z91.19 Patient's noncompliance with other medical treatment and regimen; I25.2 Old myocardial infarction; Z95.5 Presence of coronary angioplasty implant and graft; E78.5 Hyperlipidemia, unspecified; F12.20 Cannabis dependence, uncomplicated; G71.00 Muscular dystrophy, unspecified; Z99.81 Dependence on supplemental oxygen; Z87.820 Personal history of traumatic brain injury; G62.9 Polyneuropathy, unspecified; F17.210 Nicotine dependence, cigarettes, uncomplicated
CPT/HCPCS: 36415; 80048; 81001; 82550; 82553; 83735; 83880; 84145; 84484; 87086; 87486; 87581; 87633; 87798; 93005; 93010; 94640; 94760; 99285-25

== ENCOUNTER 2018-12-27 23:28 | Inpatient (IN) | payer MEDICARE ==
[~2018-12-27] VITALS: Ht 170.2 cm; Wt 65.9 kg
[~2018-12-27 23:28] MED LIST changes: +ALBU90OI61 INH; +BUPR150T2 PO; -BUSP15 PO; +BUSP5 PO; +LO-DOSE ASPIRIN81 MG PO
[2018-12-27 23:54] LABS: BASOPHILS ABSOLUTE AUTO 0.08 K/mm3 (0.00-0.23); BASOPHILS PERCENT AUTO 1 % (0-2); EOSINOPHILS ABSOLUTE AUTO 0.19 K/mm3 (0.00-0.68); EOSINOPHILS PERCENT AUTO 1 % (0-6); Hematocrit 40.3 % (37.0-53.0); Hemoglobin 14.2 g/dL (13.5-17.5); IMMATURE GRAN ABSOLUTE AUTO 0.18 K/mm3 (0.00-0.10); IMMATURE GRAN PERCENT AUTO 1 % (0-1); LYMPHOCYTES PERCENT AUTO 9 % (21-46); MONOCYTES ABSOLUTE AUTO 1.75 K/mm3 (0.16-1.47); MONOCYTES PERCENT AUTO 11 % (4-13); Mean Corpuscular HGB 35.5 pg (26.0-34.0); Mean Corpuscular HGB Conc 35.2 g/dL (31.5-36.5); Mean Corpuscular Volume 101 fL (80-100); Mean Platelet Volume 9.5 fL (9.1-12.4); NEUTROPHILS ABSOLUTE AUTO 11.72 K/mm3 (1.96-9.15); NEUTROPHILS PERCENT AUTO 77 % (41-73); Platelet Count 322 K/mm3 (150-400); RDW Coefficient Variation 13.2 % (11.7-14.2); RDW Standard Deviation 48.9 fL (35.1-46.3); White Blood Cell Count 15.32 K/mm3 (4.00-11.30)
[2018-12-28 00:13] LABS: Alanine Aminotransfer (ALT/SGP 36 U/L (12-78); Albumin, Blood 3.1 g/dL (3.4-5.0); Alk Phos 126 U/L (50-136); Anion Gap 8 mmol/L (6-16); Aspartate Aminotrans (AST/SGOT 32 U/L (12-37); Bilirubin, Total 0.4 mg/dL (0.1-1.0); Blood Urea Nitrogen 10 mg/dL (8-24); Bun/Creatinine Ratio 18.6 (12.0-20.0); CO2, Blood 33 mmol/L (21-32); Calcium, Blood 8.2 mg/dL (8.5-10.1); Chloride, Blood 86 mmol/L (98-108); Creatinine, Blood 0.54 mg/dL (0.60-1.20); Globulin, Blood 3.2 g/dL (2.2-4.0); Glomerular Filtration Rate >60 (60-); Glucose, Blood 103 mg/dL (70-99); Potassium, Blood 3.9 mmol/L (3.5-5.5); Sodium, Blood 127 mmol/L (136-145); Total Protein, Blood 6.3 g/dL (6.4-8.2); Troponin I 0.123 ng/mL (0.000-0.040)
[2018-12-28 00:27] LABS: PCO2 Arterial 57.9 mmHg (35-45); PO2 Arterial 69.8 mmHg (80-100); pH Blood Arterial 7.38 (7.35-7.45)
[2018-12-28 01:58] LABS: Source, Urine Clean Catch
[2018-12-28 02:00] LABS: Bilirubin, Urine Neg (Neg); Blood, Urine Neg (Neg); Glucose Qualitative, Urine Neg (Neg); Ketones, Urine Neg (Neg); Leukocyte Esterase, Urine Neg (Neg); Nitrite, Urine Neg (Neg); Protein, Urine 2+ (Neg); Urobilinogen, Urine NORM (Normal)
[2018-12-28 02:04] LABS: Appearance, Urine Clear (Clear); Color, Urine Yellow (P-Yellow)
[2018-12-28 02:08] LABS: Bacteria Not Seen /hpf; Red Blood Cells, Urine Not Seen /hpf (0-2); Squamous Epithelial Cells Not Seen /hpf (Few); White Blood Cells, Urine Not Seen /hpf (0-5)
[2018-12-28 05:35] LABS: Anion Gap 12 mmol/L (6-16); Blood Urea Nitrogen 10 mg/dL (8-24); Bun/Creatinine Ratio 19.4 (12.0-20.0); CO2, Blood 27 mmol/L (21-32); Calcium, Blood 8.2 mg/dL (8.5-10.1); Chloride, Blood 88 mmol/L (98-108); Creatinine, Blood 0.52 mg/dL (0.60-1.20); Glomerular Filtration Rate >60 (60-); Glucose, Blood 127 mg/dL (70-99); Potassium, Blood 3.9 mmol/L (3.5-5.5); Sodium, Blood 127 mmol/L (136-145)
--- NOTE | 2018-12-28 06:07 | NUR ---
NO ASSESSMENT CHANGES. DRESSING ON BACK INCISION IS C/D/I. DENIES SOB. VSS. UP MULTIPLE TIMES TO THE BATHROOM PASSING GAS, TOLERATES AMBULATION WELL, USES WALKER. RUELAS IS STILL HAVING ORANGE TINGED OUTPUT. OXYCODONE GIVEN @ 2100, 0100, AND 0515. UNSURE OF DC PLAN AT THIS TIME.
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
[2018-12-28 08:35] LABS: BASOPHILS ABSOLUTE AUTO 0.05 K/mm3 (0.00-0.23); BASOPHILS PERCENT AUTO 0 % (0-2); EOSINOPHILS PERCENT AUTO 0 % (0-6); Hematocrit 41.5 % (37.0-53.0); Hemoglobin 14.6 g/dL (13.5-17.5); IMMATURE GRAN ABSOLUTE AUTO 0.18 K/mm3 (0.00-0.10); IMMATURE GRAN PERCENT AUTO 1 % (0-1); LYMPHOCYTES ABSOLUTE AUTO 0.48 K/mm3 (0.84-5.20); LYMPHOCYTES PERCENT AUTO 4 % (21-46); MONOCYTES ABSOLUTE AUTO 0.17 K/mm3 (0.16-1.47); MONOCYTES PERCENT AUTO 1 % (4-13); Mean Corpuscular HGB 35.8 pg (26.0-34.0); Mean Corpuscular HGB Conc 35.2 g/dL (31.5-36.5); Mean Corpuscular Volume 102 fL (80-100); NEUTROPHILS ABSOLUTE AUTO 12.32 K/mm3 (1.96-9.15); NEUTROPHILS PERCENT AUTO 93 % (41-73); Platelet Count 305 K/mm3 (150-400); RDW Coefficient Variation 13.2 % (11.7-14.2); RDW Standard Deviation 49.3 fL (35.1-46.3); Red Blood Cell Count 4.08 M/mm3 (4.30-5.90)
--- NOTE | 2018-12-28 13:49 | NUR ---
REQUESTED MEDICAL RECORDS FROM [facility] I DID SEND REQUIRED PAPERWORK REQUESTING PT'S MEDICAL RECORDS TO OUR MEDICAL RECORDS OFFICE. THEY WILL SCAN IN THE REQUESTED RECORDS WHEN [facility] RESPONDS.
--- NOTE | 2018-12-28 16:54 | NUR ---
SHIFT SUMMARY I DID ENTER CIWA ASSESSMENTS INTO THE PT'S EMAR FOR NURSES TO CHART ON TODAY. I DID RETRIEVE RECORDS OF THE PT'S RECENT HOSPITAL STAY AT [facility] TODAY, THEY ARE WITH THE PT'S CHART. SCHEDULED IV ANTIBIOTICS GIVEN ORDERED, IV IS POSITIONAL. PT COOPERATIVE WITH CARE. I DID CATCH HIM SMOKING IN THE ROOM AND INFORMED HIM OF OUR POLICY ON THIS. PT ABLE TO STATE HIS NEEDS. I HAVE NOT SEEN ANY WITHDRAWAL SIGNS THIS SHIFT FROM ETOH.
--- NOTE | 2018-12-29 04:38 | NUR ---
SHIFT SUMMARY: 73 Y/O MALE HAD RESTLESS NIGHT FIRST 1/2 OF SHIFT WITH UP/DOWN NUMEROUS TIMES TO BATHROOM, MUCH TROUBLE STANDING AND AMBULATING (GAIT VERY UNSTEADY VIA WALKER AND ONE STANDBY ASSIST), FORGETS TO CALL FOR HELP WITH BED/CHAIR ALARM APPLIED ALL TIMES, CIWA=0, INCREASED DYSPNEA NOTED WITH SLIGHT ACTIVITY WHICH RESOLVES WITH REST WHILE WEARING O2 AT 5L/M PER NASAL CANNULA, DENIES PAIN OR NAUSEA, BED LOW POSITION, CALL LIGHT AT SIDE.
[2018-12-29 05:28] LABS: BASOPHILS ABSOLUTE AUTO 0.02 K/mm3 (0.00-0.23); BASOPHILS PERCENT AUTO 0 % (0-2); EOSINOPHILS PERCENT AUTO 0 % (0-6); Hematocrit 40.6 % (37.0-53.0); Hemoglobin 13.8 g/dL (13.5-17.5); IMMATURE GRAN ABSOLUTE AUTO 0.13 K/mm3 (0.00-0.10); IMMATURE GRAN PERCENT AUTO 1 % (0-1); LYMPHOCYTES ABSOLUTE AUTO 0.55 K/mm3 (0.84-5.20); LYMPHOCYTES PERCENT AUTO 3 % (21-46); MONOCYTES ABSOLUTE AUTO 0.78 K/mm3 (0.16-1.47); MONOCYTES PERCENT AUTO 5 % (4-13); Mean Corpuscular HGB 35.7 pg (26.0-34.0); NEUTROPHILS ABSOLUTE AUTO 15.77 K/mm3 (1.96-9.15); NEUTROPHILS PERCENT AUTO 91 % (41-73); Platelet Count 341 K/mm3 (150-400); RDW Coefficient Variation 13.4 % (11.7-14.2); RDW Standard Deviation 51.9 fL (35.1-46.3); Red Blood Cell Count 3.87 M/mm3 (4.30-5.90); White Blood Cell Count 17.25 K/mm3 (4.00-11.30)
[2018-12-29 05:29] LABS: Mean Corpuscular Volume 105 fL (80-100)
[2018-12-29 05:57] LABS: Albumin, Blood 3.4 g/dL (3.4-5.0); Anion Gap 4 mmol/L (6-16); Blood Urea Nitrogen 24 mg/dL (8-24); Bun/Creatinine Ratio 31.3 (12.0-20.0); CO2, Blood 34 mmol/L (21-32); Chloride, Blood 93 mmol/L (98-108); Creatinine, Blood 0.77 mg/dL (0.60-1.20); Glomerular Filtration Rate >60 (60-); Glucose, Blood 151 mg/dL (70-99); Phosphorus, Blood 3.4 mg/dL (2.5-4.9); Potassium, Blood 4.4 mmol/L (3.5-5.5); Sodium, Blood 131 mmol/L (136-145)
--- NOTE | 2018-12-29 17:49 | NUR ---
Spiritual Care intial note: Sarkis was talkative and pleasant. 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 Interestingly, he used profanity throughout our conversation. 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 "I still haven't gotten over most of that." Sarkis is not afraid of dying and understands he may be nearing end-of-life. He also does not beleive he will "anytime soon." He believes he will recover from this current illness and return to baseline/home. He feels well-supported by friends and is very close to his brother in [place]. They speak daily. Sarkis appeared appreciaitve of companionship and theraputic listening to his stories. He declined prayer. Sarkis states that his brother is the executor of his will and beleives this includes medical decisions on his behalf. I am unclear how much of Sarkis's statements are grounded in fact. I will remain available.
--- NOTE | 2018-12-29 17:56 | NUR ---
PATIENT HAS SLEPT MOST OF THE SHIFT. HE IS ALERT AND ORIENTED. NO COMPLAINTS OF PAIN,SOB, NV.
--- NOTE | 2018-12-30 04:29 | NUR ---
SHIFT SUMMARY: 73 Y/O MALE RESTED COMFORTABLY ALL SHIFT, ALERT AND ORIENTED X 4, INCREASED DYSPNEA NOTED WITH SLIGHT ACTIVITY WHILE WEARING O2 AT 5L/M PER NASAL CANNULA WHICH RESOLVES WITH REST, PT CONTINUES TO HAVE POOR BALANCE WHEN STANDING UP AND REQUIRES WALKER AND STANDBY ASSISTANCE FROM NURSING STAFF, DENIES PAIN OR NAUSEA, BED ALARM APPLIED, BED LOW POSITION, CALL LIGHT AT SIDE.
[2018-12-30 04:52] LABS: BASOPHILS ABSOLUTE AUTO 0.01 K/mm3 (0.00-0.23); BASOPHILS PERCENT AUTO 0 % (0-2); EOSINOPHILS PERCENT AUTO 0 % (0-6); Hematocrit 37.3 % (37.0-53.0); Hemoglobin 12.4 g/dL (13.5-17.5); IMMATURE GRAN ABSOLUTE AUTO 0.23 K/mm3 (0.00-0.10); IMMATURE GRAN PERCENT AUTO 1 % (0-1); LYMPHOCYTES ABSOLUTE AUTO 0.73 K/mm3 (0.84-5.20); LYMPHOCYTES PERCENT AUTO 3 % (21-46); MONOCYTES ABSOLUTE AUTO 1.67 K/mm3 (0.16-1.47); MONOCYTES PERCENT AUTO 7 % (4-13); Mean Corpuscular HGB 35.3 pg (26.0-34.0); Mean Corpuscular HGB Conc 33.2 g/dL (31.5-36.5); Mean Corpuscular Volume 106 fL (80-100); Mean Platelet Volume 9.9 fL (9.1-12.4); NEUTROPHILS ABSOLUTE AUTO 19.95 K/mm3 (1.96-9.15); NEUTROPHILS PERCENT AUTO 88 % (41-73); Platelet Count 307 K/mm3 (150-400); RDW Standard Deviation 54.4 fL (35.1-46.3); Red Blood Cell Count 3.51 M/mm3 (4.30-5.90); White Blood Cell Count 22.59 K/mm3 (4.00-11.30)
[2018-12-30] MEDS ORDERED: Aspir 8181 MG PO (09:42)
[2018-12-30] MEDS ORDERED: BUDE10.22 INH (17:07)
[2018-12-30] MEDS ORDERED: HYDR1TAB94 PO (17:09)
--- NOTE | 2018-12-30 18:24 | NUR ---
no acute changes to patient. he did not go out to smoke this shift. is able to express any needs. call light within reach.
--- NOTE | 2018-12-31 06:10 | NUR ---
SHIFT SUMMARY PT IS A 73 Y/O MALE, ADMITTED FOR ACUTE HYPOXEMIC RESPIRATORY FAILURE.HE IS A&O X 3, AND A 1PA UP IN THE ROOM. PT DID STAND AT THE BEDSIDE TO USE THE URINAL MULTIPLE TIMES DURING THE NIGHT. HE IS ON 3-4L OF O2 VIA NC, AND IS NORMALLY ON 3L OF O2 AT HOME. PT DENIED ANY ACUTE COMPLAINTS OF PAIN, NAUSEA OR ACUTE SOB, BUT DID REPORT ONCE THAT THE HEALING WOUND ON HIS NECK WAS "BOTHERING ME", AND SKIN CREAM WAS APPLIED TO THE SITE PER HIS REQUEST. VITAL SIGNS STABLE. NO OTHER ACUTE CHANGES IN PT CONDITION NOTED. WILL CONTINUE TO MONITOR AND TREAT PER EMAR UNTIL HAND OFF TO DAY SHIFT RN.
[2018-12-31 09:45] LABS: BASOPHILS ABSOLUTE AUTO 0.02 K/mm3 (0.00-0.23); BASOPHILS PERCENT AUTO 0 % (0-2); EOSINOPHILS ABSOLUTE AUTO 0.08 K/mm3 (0.00-0.68); EOSINOPHILS PERCENT AUTO 1 % (0-6); Hematocrit 40.8 % (37.0-53.0); Hemoglobin 13.3 g/dL (13.5-17.5); IMMATURE GRAN ABSOLUTE AUTO 0.13 K/mm3 (0.00-0.10); IMMATURE GRAN PERCENT AUTO 1 % (0-1); LYMPHOCYTES ABSOLUTE AUTO 1.78 K/mm3 (0.84-5.20); LYMPHOCYTES PERCENT AUTO 10 % (21-46); MONOCYTES ABSOLUTE AUTO 1.48 K/mm3 (0.16-1.47); MONOCYTES PERCENT AUTO 8 % (4-13); Mean Corpuscular HGB 35.6 pg (26.0-34.0); Mean Corpuscular HGB Conc 32.6 g/dL (31.5-36.5); Mean Platelet Volume 9.4 fL (9.1-12.4); NEUTROPHILS ABSOLUTE AUTO 14.08 K/mm3 (1.96-9.15); NEUTROPHILS PERCENT AUTO 80 % (41-73); Platelet Count 327 K/mm3 (150-400); RDW Coefficient Variation 14.2 % (11.7-14.2); RDW Standard Deviation 57.8 fL (35.1-46.3); Red Blood Cell Count 3.74 M/mm3 (4.30-5.90); White Blood Cell Count 17.57 K/mm3 (4.00-11.30)
[2018-12-31 09:47] LABS: Mean Corpuscular Volume 109 fL (80-100)
[2018-12-31] MEDS ORDERED: Prednisone10 MG PO (11:50)
[2018-12-31] MEDS ORDERED: VITAMIN B-1100 MG PO (11:51)
[2018-12-31] MEDS ORDERED: CEPH500 PO (11:52)
[2018-12-31] MEDS ORDERED: Vsl#3 Capsule1 EACH PO (11:52)
--- NOTE | 2018-12-31 13:15 | NUR ---
DISCHARGE DISCHARGE MEDICATIONS AND INSTRUCTIONS EXPLAINED TO PATIENT. PATIENT STATED UNDERSTANDING. [facility]CRIPT[facility] FOLLOW UP WITH [facility] PCP SCHEDULED FOR 01/08/19. HOME HEALTH REFERRAL TO [facility]. IV REMOVED WITHOUT DIFFICULTY. BELONGINGS WITH PATIENT. PATIENT TRANSFERED TO PRIVATE VEHICLE VIA WHEELCHAIR.
== END 2018-12-31 13:00 | disposition home health service (06) | DRG 189 ==
LOC: ER 23:28 → MEDS 12-28 02:40 → ENPENDDIS 12-31 10:22 → MEDS 12-31 13:00
PROVIDERS: Emergency Medicine; Internal Medicine; ADMIT Hospitalist
DX: J96.21 Acute and chronic respiratory failure with hypoxia (principal); I21.A1 Myocardial infarction type 2; J44.1 Chronic obstructive pulmonary disease with (acute) exacerbation; L03.221 Cellulitis of neck; E87.1 Hypo-osmolality and hyponatremia; F10.129 Alcohol abuse with intoxication, unspecified; N40.0 Benign prostatic hyperplasia without lower urinary tract symptoms; Z85.79 Personal history of other malignant neoplasms of lymphoid, hematopoietic and related tissues; G71.09 Other specified muscular dystrophies; I10 Essential (primary) hypertension; F32.9 Major depressive disorder, single episode, unspecified; Z99.81 Dependence on supplemental oxygen; Z87.820 Personal history of traumatic brain injury; I25.10 Atherosclerotic heart disease of native coronary artery without angina pectoris; Z95.5 Presence of coronary angioplasty implant and graft; S12.9XXD Fracture of neck, unspecified, subsequent encounter; Y90.7 Blood alcohol level of 200-239 mg/100 ml; F17.210 Nicotine dependence, cigarettes, uncomplicated; E78.5 Hyperlipidemia, unspecified; Z91.19 Patient's noncompliance with other medical treatment and regimen
CPT/HCPCS: 36415; 36600; 71045; 80048; 80053; 80069; 81001; 82803; 83605; 83735; 83880; 84145; 84484; 85025; 87040; 93005; 93010; 94640; 94644; 94760; 96365; 96375; 97163; 97166; 97530; 99285-25; G0480; J0690; J1644; J2930; J7030; J7512

== ENCOUNTER 2019-01-03 06:44 | Emergency (ER) | payer OTHER ==
[~2019-01-03] VITALS: Ht 170.2 cm; Wt 63.5 kg
[~2019-01-03 06:44] MED LIST changes: +Aspir 8181 MG PO; +BUDE10.22 INH; +CEPH500 PO; +HYDR1TAB94 PO; +Prednisone10 MG PO; +VITAMIN B-1100 MG PO; +Vsl#3 Capsule1 EACH PO
[2019-01-03 07:03] LABS: BASOPHILS ABSOLUTE AUTO 0.06 K/mm3 (0.00-0.23); BASOPHILS PERCENT AUTO 0 % (0-2); EOSINOPHILS ABSOLUTE AUTO 0.34 K/mm3 (0.00-0.68); EOSINOPHILS PERCENT AUTO 2 % (0-6); Hematocrit 42.3 % (37.0-53.0); Hemoglobin 13.9 g/dL (13.5-17.5); IMMATURE GRAN ABSOLUTE AUTO 0.28 K/mm3 (0.00-0.10); IMMATURE GRAN PERCENT AUTO 2 % (0-1); LYMPHOCYTES ABSOLUTE AUTO 1.97 K/mm3 (0.84-5.20); LYMPHOCYTES PERCENT AUTO 11 % (21-46); MONOCYTES ABSOLUTE AUTO 1.61 K/mm3 (0.16-1.47); MONOCYTES PERCENT AUTO 9 % (4-13); Mean Corpuscular HGB 35.1 pg (26.0-34.0); Mean Corpuscular HGB Conc 32.9 g/dL (31.5-36.5); Mean Corpuscular Volume 107 fL (80-100); Mean Platelet Volume 9.3 fL (9.1-12.4); NEUTROPHILS ABSOLUTE AUTO 13.43 K/mm3 (1.96-9.15); NEUTROPHILS PERCENT AUTO 76 % (41-73); Platelet Count 343 K/mm3 (150-400); RDW Coefficient Variation 13.9 % (11.7-14.2); Red Blood Cell Count 3.96 M/mm3 (4.30-5.90); White Blood Cell Count 17.69 K/mm3 (4.00-11.30)
[2019-01-03 07:15] LABS: Alanine Aminotransfer (ALT/SGP 21 U/L (12-78); Albumin, Blood 3.1 g/dL (3.4-5.0); Albumin/Globulin Ratio 0.9 (0.8-1.8); Alk Phos 141 U/L (50-136); Anion Gap 4 mmol/L (6-16); Aspartate Aminotrans (AST/SGOT 28 U/L (12-37); Bilirubin, Total 0.3 mg/dL (0.1-1.0); Blood Urea Nitrogen 19 mg/dL (8-24); CO2, Blood 37 mmol/L (21-32); Calcium, Blood 8.3 mg/dL (8.5-10.1); Chloride, Blood 97 mmol/L (98-108); Creatinine, Blood 0.63 mg/dL (0.60-1.20); Ethanol (Alcohol), Blood, Med 227 mg/dL; Globulin, Blood 3.4 g/dL (2.2-4.0); Glomerular Filtration Rate >60 (60-); Glucose, Blood 131 mg/dL (70-99); Potassium, Blood 4.2 mmol/L (3.5-5.5); Sodium, Blood 138 mmol/L (136-145); Total Protein, Blood 6.5 g/dL (6.4-8.2)
[2019-01-03] MEDS ORDERED: Robaxin750 MG PO (07:26)
[2019-01-03] MEDS ORDERED: VARE1 (07:27)
== END 2019-01-03 10:55 | disposition home or self-care (01) ==
LOC: ER 06:44
PROVIDERS: Emergency Medicine
DX: J96.01 Acute respiratory failure with hypoxia (principal); J44.1 Chronic obstructive pulmonary disease with (acute) exacerbation; F10.129 Alcohol abuse with intoxication, unspecified; Y90.7 Blood alcohol level of 200-239 mg/100 ml; Z88.8 Allergy status to other drugs, medicaments and biological substances; Z79.899 Other long term (current) drug therapy; Z79.82 Long term (current) use of aspirin; Z79.52 Long term (current) use of systemic steroids; I25.10 Atherosclerotic heart disease of native coronary artery without angina pectoris; F43.10 Post-traumatic stress disorder, unspecified; I10 Essential (primary) hypertension; F32.9 Major depressive disorder, single episode, unspecified; E78.5 Hyperlipidemia, unspecified; F41.9 Anxiety disorder, unspecified; F17.210 Nicotine dependence, cigarettes, uncomplicated
CPT/HCPCS: 71045; 80053; 85025; 93005; 93010; 94644; 99284-25; G0480

== ENCOUNTER 2019-01-06 01:01 | Inpatient (IN) | payer OTHER, MEDICARE ==
[~2019-01-06] VITALS: Ht 170.2 cm; Wt 68.1 kg
[~2019-01-06 01:01] MED LIST changes: +Robaxin750 MG PO; +VARE1
[2019-01-06 02:22] LABS: BASOPHILS ABSOLUTE AUTO 0.05 K/mm3 (0.00-0.23); BASOPHILS PERCENT AUTO 0 % (0-2); EOSINOPHILS ABSOLUTE AUTO 0.11 K/mm3 (0.00-0.68); EOSINOPHILS PERCENT AUTO 1 % (0-6); Hematocrit 37.5 % (37.0-53.0); Hemoglobin 12.1 g/dL (13.5-17.5); IMMATURE GRAN ABSOLUTE AUTO 0.33 K/mm3 (0.00-0.10); IMMATURE GRAN PERCENT AUTO 3 % (0-1); LYMPHOCYTES ABSOLUTE AUTO 1.09 K/mm3 (0.84-5.20); LYMPHOCYTES PERCENT AUTO 9 % (21-46); MONOCYTES ABSOLUTE AUTO 1.27 K/mm3 (0.16-1.47); MONOCYTES PERCENT AUTO 10 % (4-13); Mean Corpuscular HGB 36.6 pg (26.0-34.0); Mean Corpuscular HGB Conc 32.3 g/dL (31.5-36.5); Mean Corpuscular Volume 113 fL (80-100); Mean Platelet Volume 9.6 fL (9.1-12.4); NEUTROPHILS ABSOLUTE AUTO 9.86 K/mm3 (1.96-9.15); NEUTROPHILS PERCENT AUTO 78 % (41-73); Platelet Count 262 K/mm3 (150-400); RDW Coefficient Variation 14.1 % (11.7-14.2); RDW Standard Deviation 59.6 fL (35.1-46.3); Red Blood Cell Count 3.31 M/mm3 (4.30-5.90); White Blood Cell Count 12.71 K/mm3 (4.00-11.30)
[2019-01-06 02:43] LABS: Alanine Aminotransfer (ALT/SGP 26 U/L (12-78); Albumin, Blood 2.9 g/dL (3.4-5.0); Albumin/Globulin Ratio 0.9 (0.8-1.8); Alk Phos 155 U/L (50-136); Anion Gap 3 mmol/L (6-16); Aspartate Aminotrans (AST/SGOT 40 U/L (12-37); Bilirubin, Total 0.4 mg/dL (0.1-1.0); Blood Urea Nitrogen 14 mg/dL (8-24); Bun/Creatinine Ratio 24.4 (12.0-20.0); CO2, Blood 37 mmol/L (21-32); Calcium, Blood 8.3 mg/dL (8.5-10.1); Chloride, Blood 100 mmol/L (98-108); Creatinine, Blood 0.57 mg/dL (0.60-1.20); Ethanol (Alcohol), Blood, Med 95 mg/dL; Globulin, Blood 3.2 g/dL (2.2-4.0); Glomerular Filtration Rate >60 (60-); Glucose, Blood 101 mg/dL (70-99); Potassium, Blood 4.5 mmol/L (3.5-5.5); Sodium, Blood 140 mmol/L (136-145); Total Protein, Blood 6.1 g/dL (6.4-8.2); Troponin I 0.045 ng/mL (0.000-0.040)
[2019-01-06 06:11] LABS: Adenovirus Not Detected (NOT DETECT); Bordetella pertussis Not Detected (NOT DETECT); Chlamydophila pneumoniae Not Detected (NOT DETECT); Coronavirus 229E Not Detected (NOT DETECT); Coronavirus HKU1 Not Detected (NOT DETECT); Coronavirus NL63 Not Detected (NOT DETECT); Coronavirus OC43 Not Detected (NOT DETECT); Human Metapneumovirus Not Detected (NOT DETECT); Human Rhinovirus/Enterovirus Not Detected (NOT DETECT); Influenza A Not Detected (NOT DETECT); Influenza A/2009-H1 Not Detected (NOT DETECT); Influenza A/H1 Not Detected (NOT DETECT); Influenza A/H3 Not Detected (NOT DETECT); Influenza B Not Detected (NOT DETECT); Mycoplasma pneumoniae Not Detected (NOT DETECT); Parainfluenza Virus 1 Not Detected (NOT DETECT); Parainfluenza Virus 2 Not Detected (NOT DETECT); Parainfluenza Virus 3 Not Detected (NOT DETECT); Parainfluenza Virus 4 Not Detected (NOT DETECT); Respiratory Syncytial Virus Not Detected (NOT DETECT)
--- NOTE | 2019-01-06 07:16 | NUR ---
PT WAS ADMITTED TO ROOM ICU 7 UNDER PCU STATUS. PT SLIDE TRANSFERRED TO BED. PT CONFUSED, AND BECOMES AGITATED EASILY. BIPAP MASK ON 01/16 WITH FIO2 AT 40 PERCENT. HAVE DECREASED TO 35 PERCENT. MAINTAINING SATURATIONS > 90 PERCENT. ANTIBIOTIC - AZITHROMYCIN GIVEN. NO S/S ADVERSE REACTIONS TO NOTE. PT YELLS OUT FOR WATER. EXPLAINED TO PT THAT THE DOCTOR HAS MADE HIM NPO UNTIL HE IS EVALUATED THIS AM. PT ALSO HAS ATTEMPTED TO GET OUT OF BED AND WAS GOING TO GO GET "COFFEE" UNFORTUNATELY, PT WAS NOT REDIRECTABLE. WOULD NOT FOLLOW INSTRUCTIONS. SECONDARY TO SEVERE EXERTIONAL DYSPNEA, AND PULLING AT HIS BIPAP MASK, PT WAS PLACE WITH LEAH VEST, AND SOFT WRIST RESTRAINTS. EXPLAINED TO PT THE RATIONALE FOR HIS SAFETY THE REASON FOR RESTRAINTS. REPORT GIVEN TO ONCOMING RN.
--- NOTE | 2019-01-06 07:30 | NUR ---
Patient awake in bed with BIPAP in place 01/16 with BU rate of 14 and stats mid to low 90%'s. He is on bedpan. He continues to call out for water and has been directed multiple times that he is no intake until doctor comes by and changes order. Pulled IV from RAC looked red and puffy and has LAC dressing intact and site WNL's and is SL'd and flushed. He is in bilateral soft wrist and alexey. He has very short memory retention and has to be directed many times on same subject.
[2019-01-06 08:13] LABS: Hematocrit 36.9 % (37.0-53.0); Hemoglobin 12.1 g/dL (13.5-17.5); Mean Corpuscular HGB 35.8 pg (26.0-34.0); Mean Corpuscular HGB Conc 32.8 g/dL (31.5-36.5); Mean Platelet Volume 9.4 fL (9.1-12.4); Platelet Count 253 K/mm3 (150-400); RDW Standard Deviation 56.2 fL (35.1-46.3); Red Blood Cell Count 3.38 M/mm3 (4.30-5.90); White Blood Cell Count 13.64 K/mm3 (4.00-11.30)
[2019-01-06 08:14] LABS: Mean Corpuscular Volume 109 fL (80-100)
--- NOTE | 2019-01-06 09:30 | NUR ---
Patient has had two liquid BM and does not cvall until after. He tolerated breakfast with minimal assist and recieved beer with meals. He is constantly asking for water and has to be reminded to slow down. He was given lasix and had 1000 out. Placed condom cath to catch urine and working well. Restraints removed at 0830 and is doing well with re-direction.
--- NOTE | 2019-01-06 10:20 | NUR ---
ECHOCARDIOGRAM COMPLETED
--- NOTE | 2019-01-06 11:50 | NUR ---
He has another BM and finger painted bed and bipap and gown so place rectal tube. Changes linen again and cleaned him up and groin area shanice res and esacoriated and put pink cream on scrotum.
[2019-01-06 12:38] LABS: Alanine Aminotransfer (ALT/SGP 26 U/L (12-78); Alk Phos 153 U/L (50-136); Anion Gap 3 mmol/L (6-16); Aspartate Aminotrans (AST/SGOT 34 U/L (12-37); Bilirubin, Total 0.7 mg/dL (0.1-1.0); Blood Urea Nitrogen 14 mg/dL (8-24); Bun/Creatinine Ratio 27.1 (12.0-20.0); CO2, Blood 36 mmol/L (21-32); Calcium, Blood 8.9 mg/dL (8.5-10.1); Chloride, Blood 98 mmol/L (98-108); Creatinine, Blood 0.52 mg/dL (0.60-1.20); Glomerular Filtration Rate >60 (60-); Glucose, Blood 101 mg/dL (70-99); Potassium, Blood 4.5 mmol/L (3.5-5.5); Sodium, Blood 137 mmol/L (136-145)
--- NOTE | 2019-01-06 13:30 | NUR ---
Patient resting after lunch and tolerated well. He did not want to finish beer as he only drinks one a day and really does not like beer. He has been more appropriate with care. He has been sitting on end of bed without out getting out and climbs back in. He remains on 6L O2 and sats low 90%'s.
--- NOTE | 2019-01-06 17:13 | NUR ---
Patient pulled off accidently condom cath and replaced and changed linen. He commnuicates his needs but not clear enough for admission hx. When starting interview he goes off in different directions. He has been reduced to 4L O2 and still sats low 90%'s. His remains a little hypertensive 150's systolic. He is currently sleeping and allowing him to sleep before waking for dinner. He is now medical status.
--- NOTE | 2019-01-06 19:18 | NUR ---
Transfered patient to chair with one assist and patient transfered self back to bed and caught him half way and he stated some blonde told him it was ok. I re-directed him to wait for staff. This is the first time he tried to transfer without staff. He still has rectal tube in place and condom cath, was just given lasix. Awaiting to give report to medical floor.
--- NOTE | 2019-01-07 05:14 | NUR ---
SHIFT SUMMARY PT IS A ICU TRANSFER. PT ARRIVED IN NO DISTRESS. PT BEGAN TO BECOME AGITATITATED AND HAVING INCREASED CONFUSION. CIWA WAS 12 AND WAS GIVEN ATIVAN. PT HAS BEEN SLEEPING SINCE ATIVAN. PT CONTINUES TO HAVE TREMORS AND SWEATS. PT WAS FOUND TO HAVE LOW SATS AT 86. PT WAS PLACED ON A OXYMIZER AND O2 INCREASED TO 5 LPM. PT ON CONTINOUS SPO2. PT CONTINUES TO HAVE RECTAL TUBE AND CONDOM CATH. PT CURRENTLY SLEEPING AND BREATHING EASY.
[2019-01-07 05:46] LABS: BASOPHILS ABSOLUTE AUTO 0.01 K/mm3 (0.00-0.23); BASOPHILS PERCENT AUTO 0 % (0-2); EOSINOPHILS PERCENT AUTO 0 % (0-6); Hematocrit 37.4 % (37.0-53.0); Hemoglobin 12.7 g/dL (13.5-17.5); IMMATURE GRAN ABSOLUTE AUTO 0.11 K/mm3 (0.00-0.10); IMMATURE GRAN PERCENT AUTO 1 % (0-1); LYMPHOCYTES ABSOLUTE AUTO 0.48 K/mm3 (0.84-5.20); LYMPHOCYTES PERCENT AUTO 5 % (21-46); MONOCYTES ABSOLUTE AUTO 0.28 K/mm3 (0.16-1.47); MONOCYTES PERCENT AUTO 3 % (4-13); Mean Corpuscular HGB 35.2 pg (26.0-34.0); Mean Platelet Volume 9.7 fL (9.1-12.4); NEUTROPHILS ABSOLUTE AUTO 8.16 K/mm3 (1.96-9.15); NEUTROPHILS PERCENT AUTO 90 % (41-73); Platelet Count 271 K/mm3 (150-400); RDW Coefficient Variation 13.2 % (11.7-14.2); RDW Standard Deviation 50.8 fL (35.1-46.3); Red Blood Cell Count 3.61 M/mm3 (4.30-5.90); White Blood Cell Count 9.04 K/mm3 (4.00-11.30)
[2019-01-07 05:49] LABS: Mean Corpuscular Volume 104 fL (80-100)
[2019-01-07 06:04] LABS: Anion Gap 2 mmol/L (6-16); Blood Urea Nitrogen 26 mg/dL (8-24); Bun/Creatinine Ratio 44.5 (12.0-20.0); CO2, Blood 40 mmol/L (21-32); Calcium, Blood 8.6 mg/dL (8.5-10.1); Chloride, Blood 92 mmol/L (98-108); Creatinine, Blood 0.58 mg/dL (0.60-1.20); Glomerular Filtration Rate >60 (60-); Glucose, Blood 149 mg/dL (70-99); Potassium, Blood 3.9 mmol/L (3.5-5.5); Sodium, Blood 134 mmol/L (136-145)
--- NOTE | 2019-01-07 07:45 | NUR ---
ASSUMED CARE OF PT- BEDSIDE REPORT COMPLETED WITH NIGHT RN DALE. PER REPORT PT TRANSFERED TO MEDICAL FLOOR LAST NIGHT UPON ARRIVAL PT VITALS WERE CHECKED O2 SATS WERE 84% ON 4L NC. PT WAS PLACED ON OXIMIZER AT 7L TO MAINTAIN O2 SATS 93%. PT HAD TREMMORS, SWEATS AND WAS HALLUCINATING IN THE NIGHT AND WAS MEDICATED WITH 1MG IV ATIVAN. PT HAS BEEN SOUND ASLEEP ALL NIGHT. PT HAS Hx TRAUMATIC BRAIN INJURY WELL, LEAVING MENTATION DIFFICULT TO ACERTAIN.
--- NOTE | 2019-01-07 13:01 | NUR ---
RECTAL TUBE REMOVAL- PT RECTAL TUBE HAD LITTLE TO NO OUTPUT. DR CHAUDHARI ORDERED DC RECTAL TUBE. BED BATH COMPLETED AND RECTAL TUBE REMOVED 45ML FLUID DRAINED FROM INFLATION PRIOR TO REMOVAL. PT TOLLERATED WELL.
--- NOTE | 2019-01-07 19:40 | NUR ---
SHIFT SUMMARY- PT ALERT AND ORIENTED, CALL LIGHT IN REACH. PT SITTING UP IN THE CHAIR, RECTAL TUBE DC'D CONDOM CATH IN PLACE PATENT AND DRAINING. IV LASIX INCREASED TO 80MG IV. PT STATED HE PLANS TO LEAVE TOMORROW AFTER LUNCH. SPOKE TO THE PT ABOUT THE RISKS OF LEAVING THE HOSPITAL PRIOR TO DR APPROVAL. AFTER THIS THE PT STATED HE MAY RECONSIDER AND STAY UNTIL THE DR APPROVES. PT SEEMS TO BE MORE ALERT THIS EVENING, PT HAS NONESSENTIAL TREMMORS, STATED HE ALWAYS SHAKES A LITTLE. CONTRACTURES PRESENT ON BUE. O2 SATS STEADY AT 89% ON 7L VIA OXIMIZER. PT IS GETTING A BEER WITH EACH MEAL AT THIS TIME. CIWAS ALL NEGATIVE T/O THE SHIFT.
--- NOTE | 2019-01-08 03:39 | NUR ---
SHIFT SUMMARY PT HAD A BETTER NIGHT THIS SHIFT. PT MAINTAINED SATS WITH O2 AND CPAP. PT WORE CPAP WITHOUT ISSUE. PT IS LESS CONFUSED BUT FORGETFUL AT TIMES. PT HAD NO COMPLAINTS OF SOB OR DISCOMFORT. PT HAS BEEN SLEEPING WELL T/O THE SHIFT. PT IS CURRENTLY SLEEPING IN NO DISTRESS. BED ALARM ON AND CALL LIGHT IN REACH.
[2019-01-08 05:38] LABS: BASOPHILS ABSOLUTE AUTO 0.01 K/mm3 (0.00-0.23); BASOPHILS PERCENT AUTO 0 % (0-2); EOSINOPHILS PERCENT AUTO 0 % (0-6); Hematocrit 37.7 % (37.0-53.0); Hemoglobin 12.6 g/dL (13.5-17.5); IMMATURE GRAN PERCENT AUTO 1 % (0-1); LYMPHOCYTES ABSOLUTE AUTO 0.44 K/mm3 (0.84-5.20); LYMPHOCYTES PERCENT AUTO 3 % (21-46); MONOCYTES ABSOLUTE AUTO 0.37 K/mm3 (0.16-1.47); MONOCYTES PERCENT AUTO 2 % (4-13); Mean Corpuscular HGB 35.6 pg (26.0-34.0); Mean Corpuscular HGB Conc 33.4 g/dL (31.5-36.5); Mean Platelet Volume 9.9 fL (9.1-12.4); NEUTROPHILS ABSOLUTE AUTO 14.66 K/mm3 (1.96-9.15); NEUTROPHILS PERCENT AUTO 94 % (41-73); Platelet Count 275 K/mm3 (150-400); RDW Coefficient Variation 13.8 % (11.7-14.2); Red Blood Cell Count 3.54 M/mm3 (4.30-5.90); White Blood Cell Count 15.58 K/mm3 (4.00-11.30)
[2019-01-08 05:40] LABS: Mean Corpuscular Volume 107 fL (80-100)
[2019-01-08 06:05] LABS: Anion Gap 4 mmol/L (6-16); Blood Urea Nitrogen 39 mg/dL (8-24); Bun/Creatinine Ratio 50.3 (12.0-20.0); CO2, Blood 41 mmol/L (21-32); Calcium, Blood 8.6 mg/dL (8.5-10.1); Chloride, Blood 89 mmol/L (98-108); Creatinine, Blood 0.78 mg/dL (0.60-1.20); Glomerular Filtration Rate >60 (60-); Glucose, Blood 157 mg/dL (70-99); Potassium, Blood 4.1 mmol/L (3.5-5.5); Sodium, Blood 134 mmol/L (136-145)
--- NOTE | 2019-01-08 18:41 | NUR ---
SHIFT SUMMARY- PT ALERT AND ORIENTED 1PA WITH TRANSFERS URINAL AT THE BEDSIDE WITH ASSIST, PT FULLY CONTINENT CONDOM CATH DC'D PER ORDER. PT HAS DENIED ANY PAIN TODAY MEDICATED WITH SCHEDULED MEDS, BETA RIVERA CHANGED TO A DIFFERENT VERSION. IV LASIX DC'D. PER DR PATTON PT SHOULD BE DC'D DAY AFTER TOMORROW (FRIDAY) POSSIBLY EARLY TOMORROW DEPENDING ON PT IMPROVEMENT. PT HAD A FULL SHOWER TODAY AFTER MAKING A BIG MESS AT LUNCH TIME. PT SHOULD BE UP IN THE CHAIR FOR ALL MEALS.
--- NOTE | 2019-01-09 04:28 | NUR ---
SHIFT SUMMARY PT IS MORE ORIENTATED THIS SHIFT. PT FOLLOWS DIRECTIONS WELL BUT IS IMPULSIVE AT TIMES. PT HAS UNSTEADY GAIT AND BED ALARM IS ON. PT IS FORGETFUL AT TIMES AND IS REDIRECTABLE. PT REMAINS ON HIGH FLOW O2 AND IS USING HIS CPAP WHILE SLEEPING. PT HAD NO COMPLAINTS OR ISSUES. PT WAS UP LATE WATCHING TV. PT CURRENTLY SLEEPING WITH CPAP AND CONTINOUS SPO2 MONITORING. PT HAD NO EPISODES OF SOB. BED ALARM ON AND CALL LIGHT IN REACH.
[2019-01-09 05:11] LABS: BASOPHILS ABSOLUTE AUTO 0.02 K/mm3 (0.00-0.23); BASOPHILS PERCENT AUTO 0 % (0-2); EOSINOPHILS ABSOLUTE AUTO 0.01 K/mm3 (0.00-0.68); EOSINOPHILS PERCENT AUTO 0 % (0-6); Hematocrit 38.5 % (37.0-53.0); Hemoglobin 12.8 g/dL (13.5-17.5); IMMATURE GRAN ABSOLUTE AUTO 0.13 K/mm3 (0.00-0.10); IMMATURE GRAN PERCENT AUTO 1 % (0-1); LYMPHOCYTES PERCENT AUTO 8 % (21-46); MONOCYTES ABSOLUTE AUTO 1.79 K/mm3 (0.16-1.47); MONOCYTES PERCENT AUTO 10 % (4-13); Mean Corpuscular HGB 35.1 pg (26.0-34.0); Mean Corpuscular HGB Conc 33.2 g/dL (31.5-36.5); Mean Corpuscular Volume 106 fL (80-100); Mean Platelet Volume 9.8 fL (9.1-12.4); NEUTROPHILS ABSOLUTE AUTO 15.42 K/mm3 (1.96-9.15); NEUTROPHILS PERCENT AUTO 82 % (41-73); Platelet Count 245 K/mm3 (150-400); RDW Coefficient Variation 13.7 % (11.7-14.2); RDW Standard Deviation 53.3 fL (35.1-46.3); Red Blood Cell Count 3.65 M/mm3 (4.30-5.90); White Blood Cell Count 18.77 K/mm3 (4.00-11.30)
[2019-01-09 05:49] LABS: Anion Gap 4 mmol/L (6-16); Blood Urea Nitrogen 41 mg/dL (8-24); Bun/Creatinine Ratio 54.3 (12.0-20.0); CO2, Blood 39 mmol/L (21-32); Calcium, Blood 8.4 mg/dL (8.5-10.1); Chloride, Blood 89 mmol/L (98-108); Creatinine, Blood 0.76 mg/dL (0.60-1.20); Glomerular Filtration Rate >60 (60-); Glucose, Blood 102 mg/dL (70-99); Potassium, Blood 4.4 mmol/L (3.5-5.5); Sodium, Blood 132 mmol/L (136-145)
--- NOTE | 2019-01-09 19:39 | NUR ---
END OF SHIFT SUMMARY: PATIENT DENIES PAIN OR DISCOMFORT THROUGHOUT THE DAY. COORDINATED WITH PT TO DECREASE PATIENT'S O2 FLOW RATE BACK TO HOME 3L/MIN. BY CHANGE OF SHIFT, PATIENT WAS 93% ON 3L. PATIENT DENIES SOB OR RESPIRATORY DISTRESS. SITTING COMFORTABLY IN THE BEDSIDE CHAIR. DURING THE AFTERNOON, PATIENT KNOCKED NC OFF OF HIS FACE WHILE SLEEPING. PATIENT WAS AT 77%. DISCUSSED IMPORTANCE WITH PATIENT OF USING CPAP WHEN SLEEPING. PATIENT AGREES. PATIENT QUICKLY RETURNED TO OVER 90% WITH THE CPAP ON. PLAN IS FOR THE PATIENT TO DISCHARGE TOMORROW.
--- NOTE | 2019-01-10 04:47 | NUR ---
Shift summary. Pt did well last pm. Pt on 3 liters O2 which is his baseline. Pt recieving breathing treatments x 2 during night. No respiratory distress noted. Pt did not want to use his cpap last pm. David mathias will not draw blood this am. Pt anticipating going home this am. States he is back to his baseline. No s/s of detoxing noted.
[2019-01-10 06:04] LABS: Anion Gap 4 mmol/L (6-16); Blood Urea Nitrogen 38 mg/dL (8-24); Bun/Creatinine Ratio 55.7 (12.0-20.0); CO2, Blood 38 mmol/L (21-32); Calcium, Blood 8.5 mg/dL (8.5-10.1); Chloride, Blood 94 mmol/L (98-108); Creatinine, Blood 0.68 mg/dL (0.60-1.20); Glomerular Filtration Rate >60 (60-); Glucose, Blood 88 mg/dL (70-99); Potassium, Blood 4.3 mmol/L (3.5-5.5); Sodium, Blood 136 mmol/L (136-145)
[2019-01-10] MEDS ORDERED: METO25ER PO (11:12)
[2019-01-10] MEDS ORDERED: LOSA25 PO (11:12)
[2019-01-10] MEDS ORDERED: TAMS.4ER PO (11:13)
[2019-01-10] MEDS ORDERED: ALBU3IS INH (11:14)
== END 2019-01-10 13:55 | disposition home or self-care (01) | DRG 189 ==
LOC: ER 01:01 → ICUW 03:48 → ICUE 03:48 → MEDS 19:54 → ENPENDDIS 01-10 07:48 → MEDS 01-10 13:55
PROVIDERS: Emergency Medicine; Hospitalist; Internal Medicine; ADMIT Internal Medicine
PROC: 5A09357 Assistance with Respiratory Ventilation, Less than 24 Consecutive Hours, Continuous Positive Airway Pressure (ICD-10-PCS; principal; 2019-01-06)
DX: J96.21 Acute and chronic respiratory failure with hypoxia (principal); I21.A1 Myocardial infarction type 2; J44.1 Chronic obstructive pulmonary disease with (acute) exacerbation; I50.22 Chronic systolic (congestive) heart failure; E87.1 Hypo-osmolality and hyponatremia; N17.9 Acute kidney failure, unspecified; E44.0 Moderate protein-calorie malnutrition; Z79.82 Long term (current) use of aspirin; G71.00 Muscular dystrophy, unspecified; F17.210 Nicotine dependence, cigarettes, uncomplicated; Z99.81 Dependence on supplemental oxygen; G62.9 Polyneuropathy, unspecified; Z87.820 Personal history of traumatic brain injury; F32.9 Major depressive disorder, single episode, unspecified; F43.10 Post-traumatic stress disorder, unspecified; F10.929 Alcohol use, unspecified with intoxication, unspecified; I25.2 Old myocardial infarction; I25.10 Atherosclerotic heart disease of native coronary artery without angina pectoris; I11.0 Hypertensive heart disease with heart failure; Y90.4 Blood alcohol level of 80-99 mg/100 ml
CPT/HCPCS: 0099U; 36415; 71046; 80048; 80053; 83690; 83880; 84145; 84484; 85025; 85027; 93005; 93010; 93306; 94640; 94660; 94664; 94667; 94760; 94761; 94762; 96374; 96375; 98960; 99285-25; C1751; G0480; J0456; J1630; J1650; J1940; J2060; J2920; J2930; J7050; J7512

== ENCOUNTER 2019-01-15 03:31 | Emergency (ER) | payer OTHER ==
[~2019-01-15] VITALS: Ht 170.2 cm; Wt 68.0 kg
[~2019-01-15 03:31] MED LIST changes: +LOSA25 PO; +METO25ER PO
[2019-01-15 03:58] LABS: BASOPHILS ABSOLUTE AUTO 0.03 K/mm3 (0.00-0.23); BASOPHILS PERCENT AUTO 0 % (0-2); EOSINOPHILS ABSOLUTE AUTO 0.26 K/mm3 (0.00-0.68); EOSINOPHILS PERCENT AUTO 2 % (0-6); Hematocrit 41.7 % (37.0-53.0); Hemoglobin 14.3 g/dL (13.5-17.5); IMMATURE GRAN ABSOLUTE AUTO 0.17 K/mm3 (0.00-0.10); IMMATURE GRAN PERCENT AUTO 1 % (0-1); LYMPHOCYTES ABSOLUTE AUTO 1.14 K/mm3 (0.84-5.20); LYMPHOCYTES PERCENT AUTO 8 % (21-46); MONOCYTES ABSOLUTE AUTO 2.09 K/mm3 (0.16-1.47); MONOCYTES PERCENT AUTO 15 % (4-13); Mean Corpuscular HGB 35.9 pg (26.0-34.0); Mean Corpuscular HGB Conc 34.3 g/dL (31.5-36.5); Mean Corpuscular Volume 105 fL (80-100); Mean Platelet Volume 9.4 fL (9.1-12.4); NEUTROPHILS ABSOLUTE AUTO 9.89 K/mm3 (1.96-9.15); NEUTROPHILS PERCENT AUTO 73 % (41-73); Platelet Count 237 K/mm3 (150-400); RDW Coefficient Variation 13.6 % (11.7-14.2); RDW Standard Deviation 53.1 fL (35.1-46.3); Red Blood Cell Count 3.98 M/mm3 (4.30-5.90); White Blood Cell Count 13.58 K/mm3 (4.00-11.30)
[2019-01-15 04:21] LABS: Alanine Aminotransfer (ALT/SGP 28 U/L (12-78); Albumin, Blood 3.3 g/dL (3.4-5.0); Albumin/Globulin Ratio 0.9 (0.8-1.8); Alk Phos 169 U/L (50-136); Anion Gap 7 mmol/L (6-16); Aspartate Aminotrans (AST/SGOT 33 U/L (12-37); Bilirubin, Total 1.5 mg/dL (0.1-1.0); Blood Urea Nitrogen 10 mg/dL (8-24); Bun/Creatinine Ratio 18.9 (12.0-20.0); CO2, Blood 35 mmol/L (21-32); Calcium, Blood 8.6 mg/dL (8.5-10.1); Chloride, Blood 93 mmol/L (98-108); Creatinine, Blood 0.53 mg/dL (0.60-1.20); Globulin, Blood 3.6 g/dL (2.2-4.0); Glomerular Filtration Rate >60 (60-); Glucose, Blood 105 mg/dL (70-99); Potassium, Blood 3.8 mmol/L (3.5-5.5); Sodium, Blood 135 mmol/L (136-145); Total Protein, Blood 6.9 g/dL (6.4-8.2); Troponin I 0.031 ng/mL (0.000-0.040)
== END 2019-01-15 06:24 | disposition home or self-care (01) ==
LOC: ER 03:31
PROVIDERS: Emergency Medicine
DX: J44.1 Chronic obstructive pulmonary disease with (acute) exacerbation (principal); I10 Essential (primary) hypertension; Z87.891 Personal history of nicotine dependence; Z88.8 Allergy status to other drugs, medicaments and biological substances; Z79.899 Other long term (current) drug therapy; Z79.82 Long term (current) use of aspirin; Z79.52 Long term (current) use of systemic steroids
CPT/HCPCS: 71046; 80053; 83880; 84484; 85025; 93005; 93010; 94640; 96374; 99284-25; J2930

== ENCOUNTER 2019-01-27 08:57 | Emergency (ER) | payer SELFPAY ==
[~2019-01-27] VITALS: Ht 170.2 cm; Wt 68.0 kg
[2019-01-27 09:30] LABS: PCO2 Arterial 65.9 mmHg (35-45); PO2 Arterial 66.5 mmHg (80-100); pH Blood Arterial 7.37 (7.35-7.45)
[2019-01-27 10:06] LABS: BASOPHILS ABSOLUTE AUTO 0.06 K/mm3 (0.00-0.23); BASOPHILS PERCENT AUTO 1 % (0-2); EOSINOPHILS ABSOLUTE AUTO 0.18 K/mm3 (0.00-0.68); EOSINOPHILS PERCENT AUTO 3 % (0-6); Hematocrit 39.9 % (37.0-53.0); Hemoglobin 13.4 g/dL (13.5-17.5); IMMATURE GRAN ABSOLUTE AUTO 0.04 K/mm3 (0.00-0.10); IMMATURE GRAN PERCENT AUTO 1 % (0-1); LYMPHOCYTES ABSOLUTE AUTO 1.54 K/mm3 (0.84-5.20); LYMPHOCYTES PERCENT AUTO 22 % (21-46); MONOCYTES ABSOLUTE AUTO 1.38 K/mm3 (0.16-1.47); MONOCYTES PERCENT AUTO 19 % (4-13); Mean Corpuscular HGB 35.4 pg (26.0-34.0); Mean Corpuscular HGB Conc 33.6 g/dL (31.5-36.5); Mean Corpuscular Volume 106 fL (80-100); Mean Platelet Volume 9.8 fL (9.1-12.4); NEUTROPHILS ABSOLUTE AUTO 3.96 K/mm3 (1.96-9.15); NEUTROPHILS PERCENT AUTO 55 % (41-73); Platelet Count 253 K/mm3 (150-400); RDW Coefficient Variation 14.2 % (11.7-14.2); RDW Standard Deviation 55.7 fL (35.1-46.3); Red Blood Cell Count 3.78 M/mm3 (4.30-5.90); White Blood Cell Count 7.16 K/mm3 (4.00-11.30)
[2019-01-27 10:07] LABS: Alanine Aminotransfer (ALT/SGP 31 U/L (12-78); Albumin, Blood 3.3 g/dL (3.4-5.0); Alk Phos 154 U/L (50-136); Anion Gap 6 mmol/L (6-16); Aspartate Aminotrans (AST/SGOT 45 U/L (12-37); Bilirubin, Total 0.5 mg/dL (0.1-1.0); Blood Urea Nitrogen 8 mg/dL (8-24); Bun/Creatinine Ratio 14.9 (12.0-20.0); CO2, Blood 37 mmol/L (21-32); Calcium, Blood 8.7 mg/dL (8.5-10.1); Chloride, Blood 90 mmol/L (98-108); Creatinine, Blood 0.54 mg/dL (0.60-1.20); Globulin, Blood 3.4 g/dL (2.2-4.0); Glomerular Filtration Rate >60 (60-); Glucose, Blood 91 mg/dL (70-99); Potassium, Blood 3.5 mmol/L (3.5-5.5); Sodium, Blood 133 mmol/L (136-145); Total Protein, Blood 6.7 g/dL (6.4-8.2); Troponin I 0.049 ng/mL (0.000-0.040)
[2019-01-27] MEDS ORDERED: PRED20 PO (12:37)
[2019-01-27] MEDS ORDERED: LEVO750 PO (12:37)
== END 2019-01-27 13:18 | disposition home or self-care (01) ==
LOC: ER 08:57
PROVIDERS: Physician Assistant
DX: J44.1 Chronic obstructive pulmonary disease with (acute) exacerbation (principal); Z88.8 Allergy status to other drugs, medicaments and biological substances; Z79.899 Other long term (current) drug therapy; Z79.82 Long term (current) use of aspirin; Z79.52 Long term (current) use of systemic steroids; I10 Essential (primary) hypertension; Z87.891 Personal history of nicotine dependence
CPT/HCPCS: 36415; 36600; 71045; 80053; 82803; 83880; 84484; 85025; 93005; 93010; 94644; 96374; 99284-25; J2930

== ENCOUNTER 2019-01-28 16:20 | Emergency (ER) | payer SELFPAY ==
[~2019-01-28] VITALS: Ht 170.2 cm; Wt 68.0 kg
--- NOTE | 2019-01-28 17:55 | NUR ---
Initial Visit: ED Palliative Care Consult for Goals of Care. Spoke with Dr Benites and discussed case. Dr Benites reports discussion regarding hospice would be appropriate. Pt is A&Ox4 and denies pain at this time. Pt reports mild and manageable dyspnea currently at rest but worsens with exertion. Pt denies nausea and anxiety at this time. Pt's room mate is present during visit and Pt is agreeable to have conversation in front of him. Pt is a and this RN thanked him for his service. He reports knowing that he is at end stage COPD. Pt reports wearing 3 Liters of O2 at home. Pt reports he ambulated with a walker and after approximately 30 feet is to short of breath to continue. Pt reports needing assistance with bathing and dressing. Pt also experiences incontinence of bowel and bladder. Pt reports wearing an attends. Discussed hospice as an option. Educated on hospice philosophy wit V/U made by Pt. Pt reports he wants hospice. He states his wishes are to remain in his home. Pt reports he does not want to stay in the hospital tonight. He states [facility]. Pt reports no other concerns at this time. Spoke with Dr Benites and he reports plan to discharge Pt back home. Discuss plan with palliative nurse Diana and she will contact [place] palliative care team in the AM to assist with Pt's wishes. Palliative Care will remaine available.
== END 2019-01-28 17:42 | disposition home or self-care (01) ==
LOC: ER 16:20
DX: J44.1 Chronic obstructive pulmonary disease with (acute) exacerbation (principal); I10 Essential (primary) hypertension; F17.200 Nicotine dependence, unspecified, uncomplicated; F10.129 Alcohol abuse with intoxication, unspecified; Z88.8 Allergy status to other drugs, medicaments and biological substances; Z79.899 Other long term (current) drug therapy; Z79.82 Long term (current) use of aspirin; Z79.52 Long term (current) use of systemic steroids
CPT/HCPCS: 94640; 99283-25; J7512

== ENCOUNTER 2019-02-18 13:12 | Inpatient (IN) | payer OTHER, MEDICARE ==
[~2019-02-18] VITALS: Ht 175.3 cm; Wt 67.5 kg
[~2019-02-18 13:12] MED LIST changes: +ALBU3IS NEB; -BUDE10.22 INH; +BUDE6HFA INH
[2019-02-18 13:39] LABS: BASOPHILS ABSOLUTE AUTO 0.06 K/mm3 (0.00-0.23); BASOPHILS PERCENT AUTO 0 % (0-2); EOSINOPHILS PERCENT AUTO 0 % (0-6); Hematocrit 39.2 % (37.0-53.0); Hemoglobin 13.4 g/dL (13.5-17.5); IMMATURE GRAN ABSOLUTE AUTO 0.14 K/mm3 (0.00-0.10); IMMATURE GRAN PERCENT AUTO 1 % (0-1); LYMPHOCYTES ABSOLUTE AUTO 0.95 K/mm3 (0.84-5.20); LYMPHOCYTES PERCENT AUTO 4 % (21-46); MONOCYTES ABSOLUTE AUTO 2.64 K/mm3 (0.16-1.47); MONOCYTES PERCENT AUTO 12 % (4-13); Mean Corpuscular HGB 36.1 pg (26.0-34.0); Mean Corpuscular HGB Conc 34.2 g/dL (31.5-36.5); Mean Corpuscular Volume 106 fL (80-100); Mean Platelet Volume 10.4 fL (9.1-12.4); NEUTROPHILS ABSOLUTE AUTO 18.33 K/mm3 (1.96-9.15); NEUTROPHILS PERCENT AUTO 83 % (41-73); Platelet Count 300 K/mm3 (150-400); RDW Coefficient Variation 14.9 % (11.7-14.2); RDW Standard Deviation 58.2 fL (35.1-46.3); Red Blood Cell Count 3.71 M/mm3 (4.30-5.90); White Blood Cell Count 22.12 K/mm3 (4.00-11.30)
[2019-02-18 13:58] LABS: PCO2 Arterial 46.8 mmHg (35-45); PO2 Arterial 60.9 mmHg (80-100); pH Blood Arterial 7.48 (7.35-7.45)
[2019-02-18 14:36] LABS: Alanine Aminotransfer (ALT/SGP 228 U/L (12-78); Albumin, Blood 3.1 g/dL (3.4-5.0); Albumin/Globulin Ratio 0.9 (0.8-1.8); Alk Phos 95 U/L (50-136); Anion Gap 8 mmol/L (6-16); Aspartate Aminotrans (AST/SGOT 343 U/L (12-37); Bilirubin, Total 0.8 mg/dL (0.1-1.0); Blood Urea Nitrogen 51 mg/dL (8-24); Bun/Creatinine Ratio 41.8 (12.0-20.0); CO2, Blood 31 mmol/L (21-32); Calcium, Blood 8.9 mg/dL (8.5-10.1); Chloride, Blood 101 mmol/L (98-108); Creatinine, Blood 1.22 mg/dL (0.60-1.20); Globulin, Blood 3.5 g/dL (2.2-4.0); Glomerular Filtration Rate >60 (60-); Glucose, Blood 143 mg/dL (70-99); Potassium, Blood 4.5 mmol/L (3.5-5.5); Sodium, Blood 140 mmol/L (136-145); Total Protein, Blood 6.6 g/dL (6.4-8.2); Troponin I 0.942 ng/mL (0.000-0.040)
[2019-02-18] MEDS ORDERED: ATEN50 PO (17:29)
[2019-02-18 21:13] LABS: PCO2 Arterial 48.6 mmHg (35-45); PO2 Arterial 138 mmHg (80-100); pH Blood Arterial 7.48 (7.35-7.45)
--- NOTE | 2019-02-18 21:19 | NUR ---
1944 PT ADMITTED TO ROOM 312 PER CART FROM ER, O2 APPLIED AT 4L/M PER NASAL CANNULA, PT SLIGHTLY CONFUSED AND UNABLE TO ANSWER ANY QUESTIONS, REPORT FROM ER (GARRETT CALDWELL) MENTIONED PATIENT HAD MAGGOTS IN HIS UNDERWEAR AND PATIENT WAS PLACED ON CONTACT ISOLATION PRECAUTIONS IMMEDIATELY, PT HAS STRONG BODY NOTED, MOUTH HAS DRIED SKIN--YELLOW CRUSTED IN SIDES, TOP/BOTTOM OF MOUTH AND LIPS, PTS ATTENDS WERE CHANGED AND CLEANED UP WITH STAGE II PRESSURE ULCER NOTED TO COCCYX--SITE REDDENED AND EXCORIATED. PTS O2 SAT UPON ADMISSION WAS 89%. 2014 CORNELIUS, RT AT SIDE AND APPLYING BIPAP AND HIGH FLOW O2 WITH SATS AT 82-82%, UNABLE TO GET BP VIA VITAL SIGN MACHINE, INCREASED CONFUSION NOTED. 2044 NO CHANGE, NURSERY SCHOOL ATTENDANT PAGED OVERHEAD. Azucena SHAY NP AT BEDSIDE. 2109 PT MOVED TO ICU-5, REPORT CALLED TO GARRETT MERIDA. ALL PERSONAL BELONGINGS SENT WITH PATIENT TO ICU-5. NOTE NURSERY SCHOOL ATTENDANT REPORT.
--- NOTE | 2019-02-18 23:16 | NUR ---
PROGRESS NOTE ASSUMED CARE OF MR. HUITRON FROM LONA SOLIS RN OF MEDICAL FLOOR. PT. ARRIVED TO ICU @ 21:20 ON 02/18, PRESENTS ON BIPAP, 27/11 45%. PT. ANSWERING BASIC YES/NO QUESTIONS, BUT WHEN ASKING DETAILED MEDICAL QUESTIONS REGARDING HISTORY, CURRENT LIVING SITUATION, PT FREQUENTLY ANSWERS "I DON'T KNOW." VERIFIED CODE STATUS WITH LUIZ THOMSON AT BEDSIDE, PT. WISHES TO BE DNR/DNI. WHEN ASKED ABOUT ROOMMATE/LIVING SITUATION, PT. STATES HIS OWN NAME, NAME OF HOSPITAL. WILL ATTEMPT LATER AFTER PT. HAS HAD TIME FOR BIPAP TO WORK.
[2019-02-19 04:04] LABS: BASOPHILS ABSOLUTE AUTO 0.03 K/mm3 (0.00-0.23); BASOPHILS PERCENT AUTO 0 % (0-2); EOSINOPHILS ABSOLUTE AUTO 0.01 K/mm3 (0.00-0.68); EOSINOPHILS PERCENT AUTO 0 % (0-6); Hematocrit 36.4 % (37.0-53.0); Hemoglobin 12.2 g/dL (13.5-17.5); IMMATURE GRAN ABSOLUTE AUTO 0.13 K/mm3 (0.00-0.10); IMMATURE GRAN PERCENT AUTO 1 % (0-1); LYMPHOCYTES ABSOLUTE AUTO 0.92 K/mm3 (0.84-5.20); LYMPHOCYTES PERCENT AUTO 4 % (21-46); MONOCYTES ABSOLUTE AUTO 2.35 K/mm3 (0.16-1.47); MONOCYTES PERCENT AUTO 11 % (4-13); Mean Corpuscular HGB 35.9 pg (26.0-34.0); Mean Corpuscular HGB Conc 33.5 g/dL (31.5-36.5); Mean Corpuscular Volume 107 fL (80-100); Mean Platelet Volume 10.4 fL (9.1-12.4); NEUTROPHILS ABSOLUTE AUTO 17.25 K/mm3 (1.96-9.15); NEUTROPHILS PERCENT AUTO 84 % (41-73); Platelet Count 268 K/mm3 (150-400); RDW Coefficient Variation 15.1 % (11.7-14.2); White Blood Cell Count 20.69 K/mm3 (4.00-11.30)
[2019-02-19 04:22] LABS: Alanine Aminotransfer (ALT/SGP 163 U/L (12-78); Albumin, Blood 2.7 g/dL (3.4-5.0); Albumin/Globulin Ratio 0.8 (0.8-1.8); Alk Phos 80 U/L (50-136); Anion Gap 8 mmol/L (6-16); Aspartate Aminotrans (AST/SGOT 199 U/L (12-37); Bilirubin, Total 0.7 mg/dL (0.1-1.0); Blood Urea Nitrogen 56 mg/dL (8-24); Bun/Creatinine Ratio 65.6 (12.0-20.0); CO2, Blood 33 mmol/L (21-32); Chloride, Blood 101 mmol/L (98-108); Creatinine, Blood 0.85 mg/dL (0.60-1.20); Globulin, Blood 3.3 g/dL (2.2-4.0); Glomerular Filtration Rate >60 (60-); Glucose, Blood 129 mg/dL (70-99); Potassium, Blood 4.4 mmol/L (3.5-5.5); Sodium, Blood 142 mmol/L (136-145)
--- NOTE | 2019-02-19 04:30 | NUR ---
SHIFT SUMMARY PATIENT SLEPT WELL THROUGH NIGHT. MAINTAINED O2 SATURATION WELL ON BIPAP, SETTINGS UNCHANGED FROM EARLIER. VSS. NO C/O PAIN. UNABLE TO COMPLETE ADMISSION HISTORY/QUESTIONCHELITA, PT. NOT WANTING TO COOPERATE WITH BASIC QUESTIONS ABOUT PAST MEDICAL ISSUES. WHEN TOLD HE WOULD BE RECEIVING FLU/PNEUMONIA VACCINES, HE REPLIED LOUDLY "NO NEEDLES!," TO WHICH I EXPLAINED HE HAD ALREADY BEEN STUCK FOR A NEW IV, WOULD BE STUCK AGAIN FOR LABS, STILL REFUSED VACCINES. MAY BE WORTH TRYING AGAIN WHEN IN MORE COOPERATIVE STATE. OTHERWISE ASSESSMENT UNCHANGED FROM WHAT IS CHARTED. WILL CONTINUE TO MONITOR.
[2019-02-19 05:02] LABS: PCO2 Arterial 49.7 mmHg (35-45); PO2 Arterial 69.2 mmHg (80-100); pH Blood Arterial 7.48 (7.35-7.45)
--- NOTE | 2019-02-19 07:34 | NUR ---
ASSUMED CARE: PT RESTING QUIETLY IN BED AT THIS TIME. BIPAP IN PLACE 27/11 AT THIS TIME. NO ACUTE NEEDS OR DISTRESS NOTED AT THIS TIME. STORE MGR CONSULT ADDED BASED ON INFORMATION RECIEVED IN REPORT ABOUT LIVING SITUATION. NO FURTHER NEEDS OR CONCERNS AT THIS TIME.
--- NOTE | 2019-02-19 08:00 | NUR ---
MEDICAL STUDENT WORKING WITH DR PATTON IN TO SEE PT. AWARE THAT PT HAS BEEN HYPERTENSIVE AND HAS HOME ORAL MEDS. ALSO AWARE THAT RN PUT IN SS CONSULT DUE TO LIVING SITUATION. PT WAS TAKING A BREAK FROMK BIPAP WHEN MED STUDENT AND RN IN ROOM, 6L SATTING LOW 90S. ASSISTED PT WITH BREAKFAST, PERFORMED ORAL CARE THEN REPLACED BIPAP. SETTINGS 16/8 WITH 40% FIO2
--- NOTE | 2019-02-19 11:45 | NUR ---
DR PATTON HERE TO SEE PT. AWARE OF LACK OF HOME MEDS ORDERED, INCLUDING HOME BP MEDS. AWARE OF SOCIAL SERVICE NEEDS.
--- NOTE | 2019-02-19 15:34 | NUR ---
PT'S ROOM MATE WAS AT BEDSIDE AND TOLD OCCUPATIONAL THERAPIST THAT PT GOES OUT AND GETS A DRINK OR STAYS IN AND HAS A DRINK. PT HAS BEEN WITHDRAWING AND HISTORY STATES 2-4 ALCOHOLIC DRINKS PER DAY. CIWA SCORE OF 9. CALL TO DR PATTON WHO ORDERS BEER WITH MEALS AND PRN ATIVAN. DIRECTOR OF DIRECT MARKETING AWARE
--- NOTE | 2019-02-19 16:23 | NUR ---
PT TRANSFERRED TO ROOM 341. REPORT GIVEN TO GARRETT MILLS. LINA AWARE THAT PT'S O2 OK AT 86% OR MORE. ALSO AWARE THAT PT IS GOING THROUGH ALCOHOL WITHDRAWALS WITH A CIWA OF 9. TOLD LINA THAT PT HAS BEER AT MEALS ORDERED AND THAT WHOEVER ASSISTS WITH TRAYS SHOULD ENSURE THAT BEER IS GIVEN. DENIED FURTHER NEEDS OR CONCERNS. ESCORTED VIA BED BY KATALINA
--- NOTE | 2019-02-19 17:56 | NUR ---
SHIFT SUMMARY: PATIENT TRANSFER FROM ICU-05 THIS SHIFT. PT ALERT, ORIENTED TO SELF; CONFUSED; COOPERATIVE WITH CARE. PT WEAK, CONFUSED; ON BEDREST. O2 @ 5L VIA NC; PT USES 4L @ HOME. COCCYX RED; PREVENTIVE MEPILEX IN PLACE. CIWA 9 THIS AFTERNOON; TREMORS, ANXIETY, DISORIENTATION. LR @ 75 CONTINUING. DISCHARGE PLANNERS WORKING ON SAFE DISCHARGE PLAN. WCTM.
[2019-02-20 05:25] LABS: BASOPHILS ABSOLUTE AUTO 0.03 K/mm3 (0.00-0.23); BASOPHILS PERCENT AUTO 0 % (0-2); EOSINOPHILS ABSOLUTE AUTO 0.06 K/mm3 (0.00-0.68); EOSINOPHILS PERCENT AUTO 0 % (0-6); Hemoglobin 9.9 g/dL (13.5-17.5); IMMATURE GRAN ABSOLUTE AUTO 0.17 K/mm3 (0.00-0.10); IMMATURE GRAN PERCENT AUTO 1 % (0-1); LYMPHOCYTES ABSOLUTE AUTO 1.02 K/mm3 (0.84-5.20); LYMPHOCYTES PERCENT AUTO 5 % (21-46); MONOCYTES PERCENT AUTO 10 % (4-13); Mean Corpuscular HGB 37.5 pg (26.0-34.0); Mean Corpuscular HGB Conc 34.1 g/dL (31.5-36.5); Mean Corpuscular Volume 110 fL (80-100); Mean Platelet Volume 10.6 fL (9.1-12.4); NEUTROPHILS ABSOLUTE AUTO 16.45 K/mm3 (1.96-9.15); NEUTROPHILS PERCENT AUTO 84 % (41-73); Platelet Count 207 K/mm3 (150-400); RDW Coefficient Variation 15.1 % (11.7-14.2); RDW Standard Deviation 60.7 fL (35.1-46.3); Red Blood Cell Count 2.64 M/mm3 (4.30-5.90); White Blood Cell Count 19.63 K/mm3 (4.00-11.30)
[2019-02-20 05:46] LABS: Alanine Aminotransfer (ALT/SGP 105 U/L (12-78); Albumin, Blood 2.3 g/dL (3.4-5.0); Albumin/Globulin Ratio 0.7 (0.8-1.8); Alk Phos 62 U/L (50-136); Anion Gap 4 mmol/L (6-16); Aspartate Aminotrans (AST/SGOT 127 U/L (12-37); Bilirubin, Total 0.7 mg/dL (0.1-1.0); Blood Urea Nitrogen 45 mg/dL (8-24); Bun/Creatinine Ratio 73.1 (12.0-20.0); CO2, Blood 34 mmol/L (21-32); Calcium, Blood 8.8 mg/dL (8.5-10.1); Chloride, Blood 102 mmol/L (98-108); Creatinine, Blood 0.62 mg/dL (0.60-1.20); Globulin, Blood 3.1 g/dL (2.2-4.0); Glomerular Filtration Rate >60 (60-); Glucose, Blood 97 mg/dL (70-99); Potassium, Blood 4.2 mmol/L (3.5-5.5); Sodium, Blood 140 mmol/L (136-145); Total Protein, Blood 5.4 g/dL (6.4-8.2)
--- NOTE | 2019-02-20 06:09 | NUR ---
SHIFT SUMMARY PATIENT ANXIOUS WITH A CIWA OF 12 AFTER SHIFT CHANGE. HR NOTED TO BE AT 121 WITH ELEVATED BP. GAVE DOSE OF METOPROLOL EARLY AND RECHECKED BP/HR AND HOUR LATER. PATIENT RESPONDED WELL TO BETA RIVERA AND TO ATIVAN FOR ALCOHOL WITHDRAWAL SYMPTOMS. PATIENT DISORIENTED AND UNABLE TO ANSWER SIMPLE QUESTIONS. PATIENT HEARD YELLING OUT FOR ANCA AND CUSSING. PATIENT INCONTINENT AND BEDREST. COCCYX EXCORIATED AND RIGHT UPPER THIGH EXCORIATED. PATIENT PULLED 1 IV OUT AND REQUIRED COMPLETE LINEN CHANGE. DENIES PAIN. WILL CONTINUE TO MONITOR AND REPORT TO ONCOMING SHIFT.
[2019-02-20] MEDS ORDERED: NEOMYCIN TOP (10:02)
[2019-02-20] MEDS ORDERED: BACITRACIN TOP (10:02)
[2019-02-20] MEDS ORDERED: [UNRECOGNIZED DRUG - OTHER] TOP (10:02)
[2019-02-20] MEDS ORDERED: BUPR150ER PO (10:03)
[2019-02-20] MEDS ORDERED: Buspirone HCl15 MG PO (10:04)
[2019-02-20] MEDS ORDERED: FOLI1 PO (10:05)
[2019-02-20] MEDS ORDERED: HYDPAM25 PO (10:06)
[2019-02-20] MEDS ORDERED: SERT25 PO (10:08)
[2019-02-20 14:00] LABS: Stool Occult Blood Guaiac 1 Pos (Neg)
--- NOTE | 2019-02-20 16:09 | NUR ---
SHIFT SUMMARY NO ACUTE CHANGES. PATIENT MEDICATED X 1 FOR PAIN. PATIENT GIVEN ATIVAN IN THE MORNING FOR CIWA SCORE OF 8. PATIENT RESTING MUCH MORE COMFORTABLY THIS AFTERNOON. PATIENT CONTINUES TO BE CONFUSED. PATIENT UNABLE TO FOLLOW INSTRUCTIONS AND COULD NOT WORK WITH PT. PATIENT ON 5-6L NC TO MAINTAIN OXYGEN SATURATION ABOVE 90%. CALL LIGHT IN REACH.
[2019-02-21 05:01] LABS: BASOPHILS ABSOLUTE AUTO 0.07 K/mm3 (0.00-0.23); BASOPHILS PERCENT AUTO 1 % (0-2); EOSINOPHILS ABSOLUTE AUTO 0.19 K/mm3 (0.00-0.68); EOSINOPHILS PERCENT AUTO 1 % (0-6); Hematocrit 31.5 % (37.0-53.0); Hemoglobin 10.3 g/dL (13.5-17.5); IMMATURE GRAN ABSOLUTE AUTO 0.21 K/mm3 (0.00-0.10); IMMATURE GRAN PERCENT AUTO 2 % (0-1); LYMPHOCYTES PERCENT AUTO 8 % (21-46); MONOCYTES PERCENT AUTO 11 % (4-13); Mean Corpuscular HGB 36.3 pg (26.0-34.0); Mean Corpuscular HGB Conc 32.7 g/dL (31.5-36.5); Mean Corpuscular Volume 111 fL (80-100); Mean Platelet Volume 10.9 fL (9.1-12.4); NEUTROPHILS ABSOLUTE AUTO 11.02 K/mm3 (1.96-9.15); NEUTROPHILS PERCENT AUTO 77 % (41-73); Platelet Count 243 K/mm3 (150-400); RDW Coefficient Variation 14.9 % (11.7-14.2); RDW Standard Deviation 61.1 fL (35.1-46.3); Red Blood Cell Count 2.84 M/mm3 (4.30-5.90); White Blood Cell Count 14.29 K/mm3 (4.00-11.30)
--- NOTE | 2019-02-21 06:25 | NUR ---
MASTER SHEET CLERK SUMMARY: patient up most of night calling our for friend/roommate Jv who had not been here at all. then calling out for his mother. when spoken to and reoriented to this, patient had no recall of calling out to anyone. lung sounds started out diminished with mild exp wheezes to dim in bases with strong loose upper airway cough, and scattered rhonchi in upper [place]. reorients to place and person easily, does not recall situation or time at all or how long he may have been here. CIWA score overnight ranged from 4-5 with mild sweats, tremors, and anxiety.
--- NOTE | 2019-02-21 08:48 | NUR ---
Pt visit this AM. Pt is resting in bed upon arrival. Pt is drowsey and is A&OX2. He is unable to verbalize appropriate reason with hospital stay and states the current year is 1998. Pt denies pain and dyspnea at this time. Pt appears mildly anxous. Pt is known to this telegraphic typewriter mechanic from previous ED visit inwhich Pt expressed interest in hospice. Briefly discussed hospice this AM and Pt expresses continued interest in hospice. Pt engages in intermittent non sensical conversation. Will attempt to discuss goals of care futher at a later time if orientation improves. Discussed case with bedside nurse Uli and discussed case. Palliative Care will remain available.
--- NOTE | 2019-02-21 17:25 | NUR ---
SUMMARY- PT ALERT TO SELF, CONFUSED TO DATE AND PLACE. THINKS ITS 1988 AND PRESIDENT IS NAILA. PT EITHER SLEEPING OF CALLING OUT AND RESTLESS. CALLS PEOPLES NAMES, MOSTLY "JAVI". PT FEEDS SELF MOSTLY WITH SET UP, AND SOME ASSIST. HAS BEER ON EACH TRAY HE CONSUMES THAT MAY HELP WITH DETOX. PT IN INCONT AND HAS JULIA BREAKDOWN, APPLIED SKIN BARRIER EACH CHANGE, APPEARS TO BE HEALING. BED ALARM ON AT ALL TIMES, PT DID NOT ATTEMPT TO GET OOB THIS SHIFT. HAS BEEN IN BED ALL SHIFT, AND TURNED SIDE TO SIDE. WILL REPORT TO NOC SHIFT.
--- NOTE | 2019-02-22 05:08 | NUR ---
NUTRITIONAL YEAST SUPERVISOR SUMMARY patient calling out to friends who were not here last night. he insisted they were walking by his room talking. In addition, patient had two episodes when he was unable to speak in sentances that made any sense. like he couldn't find the correct words to make sense. lungs still with scattered coarse rhonchi, but do sound better than yesterday.
--- NOTE | 2019-02-22 18:24 | NUR ---
PT ALERT THROUGHOUT THE SHIFT, PT FLUCTUATES IN HIS LEVEL OF ORIENTATION. PT ABLE TO STATE LOCATION AT ONE POINT THEN LATER UNABLE TO DETERMINE LOCATION. PT FREQUENTLY CALLS OUT FOR ROOMATE TO COME HELP HIM. PT HAS A VERY DIFFICULT TIME USING HIS HANDS TO GRASP. PT WORKED WITH PT AND ON FEET WITH MAXIMUM ASSIST. PT COOPERATIVE WITH CARE ONCE REORIENTED. PT CURRENTLY IN BED WATCHING TELEVISION. WILL CONTINUE TO MONITOR.
--- NOTE | 2019-02-23 05:34 | NUR ---
SHIFT SUMMARY AOX3, INTERMITTENT CONFUSION. BED ALARM. LS DIM, DENIES SOB, 3L DURING THE NIGHT, PT WORE NC ON AND OFF. CONT PULSE OX. NO C/O NAUSEA. PAIN IN HANDS 07/22. NO PRNS GIVEN. CIWA <8. MEPILEX ON BOTTOM C/D/I. L WRIST IV IS SL. BEER W/MEALS. QUESTIONING REHAB VS HOSPICE, POSSIBLE DC TODAY TO [facility].
[2019-02-23] MEDS ORDERED: B-1100 MG PO (11:39)
[2019-02-23] MEDS ORDERED: FOLI400 PO (11:40)
--- NOTE | 2019-02-23 12:59 | NUR ---
ATTEMPTED TO CALL REPORT. ATTEMPTED TO CALL REPORT AT [facility]. NO NURSE AVAILABLE AT THIS TIME. NUMBER GIVEN FOR CALL BACK WHEN NURSES AVAILABLE AT [facility].
--- NOTE | 2019-02-23 13:38 | NUR ---
PT DISCHARGED. PT DISCHARGED TO [facility]. PT IN STABLE CONDITION WITH VSS. PT IV REMOVED & INTACT. ATTEMPTED TO CALL REPORT TO MEKA GARCIA A SECOND TIME. NO ANSWER. VSS PRIO TO DC. PT TRANSPORTED VIA [facility].
--- NOTE | 2019-02-23 14:48 | NUR ---
REPORT CALLED TO MEKA GARCIA NURSE. REPORT CALLED TO MEKA GARCIA NURSE. NO FURTHER QUESTIONS NEEDED.
--- NOTE | 2019-02-23 16:17 | NUR ---
PT BROTHER NOTIFIED OF TRANSFER TO [facility]
[2019-02-25] MEDS ORDERED: BREO ELLIPTA 11 EACH INH (08:39)
[2019-02-25] MEDS ORDERED: LOSA25 PO (08:41)
== END 2019-02-23 13:38 | DRG 56 ==
LOC: ER 13:12 → MEDS 16:47 → ICUE 16:47 → MEDS 19:30 → ICUE 21:15 → MEDS 02-19 16:13
PROVIDERS: Emergency Medicine; Nurse Practitioner Acute Care; ADMIT Internal Medicine
PROC: 5A09457 Assistance with Respiratory Ventilation, 24-96 Consecutive Hours, Continuous Positive Airway Pressure (ICD-10-PCS; principal; 2019-02-18)
DX: G31.2 Degeneration of nervous system due to alcohol (principal); E43 Unspecified severe protein-calorie malnutrition; E87.1 Hypo-osmolality and hyponatremia; F10.231 Alcohol dependence with withdrawal delirium; N17.9 Acute kidney failure, unspecified; D63.1 Anemia in chronic kidney disease; J44.9 Chronic obstructive pulmonary disease, unspecified; F17.210 Nicotine dependence, cigarettes, uncomplicated; I13.10 Hypertensive heart and chronic kidney disease without heart failure, with stage 1 through stage 4 chronic kidney disease, or unspecified chronic kidney disease; N18.2 Chronic kidney disease, stage 2 (mild); D46.9 Myelodysplastic syndrome, unspecified; G62.9 Polyneuropathy, unspecified; Z87.820 Personal history of traumatic brain injury; F32.9 Major depressive disorder, single episode, unspecified; I25.2 Old myocardial infarction; E86.0 Dehydration; R09.02 Hypoxemia; R06.89 Other abnormalities of breathing; Z99.81 Dependence on supplemental oxygen; Z79.52 Long term (current) use of systemic steroids; G71.09 Other specified muscular dystrophies; Z85.79 Personal history of other malignant neoplasms of lymphoid, hematopoietic and related tissues; I25.10 Atherosclerotic heart disease of native coronary artery without angina pectoris; Z95.5 Presence of coronary angioplasty implant and graft; Z66 Do not resuscitate; Z51.5 Encounter for palliative care; K70.10 Alcoholic hepatitis without ascites
CPT/HCPCS: 36415; 36600; 71045; 80053; 82272; 82803; 83880; 84145; 84484; 85025; 93005; 93010; 94640; 94660; 94762; 97110; 97163; 97166; 97530; 97535; 99285-25; A9270; C9113; J0696; J3411; J7120